=== PATIENT | female | born 1980 | race Caucasian/White ===

== ENCOUNTER 2021-02-07 07:42 | Observation (INO) ==
[~2021-02-07 07:42] MED LIST: CLINDAMYCIN 900 MG in DEXTROSE 5% 50 ML IV SCH
[2021-02-07] MEDS ORDERED: ONDANSETRON INJ 2 MG/ML 2 ML VIAL IV STA ×2 (08:01→12:08)
[2021-02-07] MEDS ORDERED: SODIUM CHLORIDE 0.9% 1000ML 1,000 ML IV STA (08:01)
[2021-02-07] MEDS ORDERED: MoRPHine SULFATE 4 MG/ML 1 ML CARP\\VIAL IV STA (08:01)
[2021-02-07 08:36] LABS: Basophils # (auto) 0.03 K/uL (0-0.2); Basophils % (auto) 0.2 %; Eosinophils # (auto) 0.62 K/uL (0-0.5); Eosinophils % (auto) 4.6 %; Hematocrit (blood only) 42.7 % (37-47); Hemoglobin 14.4 g/dL (12.0-16.0); Immature Granulocytes # (auto) 0.06 K/uL (0.00-0.02); Immature Granulocytes % (auto) 0.4 %; Lymphocytes # (auto) 3.18 K/uL (1.2-3.4); Lymphocytes % (auto) 23.7 %; Mean Corpuscular Hemoglobin 30.3 pg (25-34); Mean Corpuscular Hgb Conc 33.7 g/dL (32-36); Mean Corpuscular Volume 89.7 fL (80-100); Mean Platelet Volume 9.9 fL (7.4-10.4); Monocytes # (auto) 0.84 K/uL (0.11-0.59); Monocytes % (auto) 6.3 %; Neutrophils # (auto) 8.71 K/uL (1.4-6.5); Neutrophils % (auto) 64.8 %; Platelet Count 432 K/uL (130-400); RDW Coefficient of Variation 13.5 % (11.5-14.5); RDW Standard Deviation 44.2 fL (36.4-46.3); Red Blood Count 4.76 M/uL (4.2-5.4); White Blood Count 13.44 K/uL (4.8-10.8)
[2021-02-07 08:37] LABS: Appearance Urine Clear (Clear); Bilirubin Urine Negative (Negative); Blood Urine 1+ (Negative); Color Urine Yellow; Glucose Urine UA Negative (Negative); Ketones Urine Negative (Negative); Leukocyte Esterase Urine Negative (Negative); Nitrite Urine Negative (Negative); Protein Urine Negative (Negative); Specific Gravity Urine 1.015 (1.000-1.030); Urobilinogen Urine Negative (Negative)
[2021-02-07 08:55] LABS: Albumin Level 3.4 gm/dl (3.4-5.0); Bacteria Urine 1+ (Negative); Calcium 9.3 mg/dl (8.5-10.1); Calcium Oxalate Crystals Urine Present (None Prsent); Est GFR (Non-African American) 84.5 ml/min; Potassium 4.1 mmol/L (3.5-5.1); RBC Urine 0-4 /hpf (0-4)
[2021-02-07 08:58] LABS: Albumin Globulin Ratio 0.9 (0.9-2); Bilirubin,Total 0.3 mg/dl (0.2-1); Globulin 3.8 gm/dl (2.5-4.0); Total Protein 7.2 gm/dl (6.4-8.2)
[2021-02-07] MEDS ORDERED: HYDROmorphone INJ 0.5 MG/0.5 ML SYR IV STA ×3 (09:42→12:51)
[2021-02-07] MEDS ORDERED: OPTIRAY 350 500ml IV ONE (10:15)
--- NOTE | 2021-02-07 10:50 | CT Scan Report ---
ABDOMEN AND PELVIS CT WITH IV CONTRAST CT DOSE: 1827.89 mGy.cm HISTORY: Acute right lower quadrant abdominal pain with nausea and constipation RLQ abd pain TECHNIQUE: Multiaxial CT images of the abdomen and pelvis were performed following the IV administrat ion of 126 cc of Optiray, A dose lowering technique was utilized adhering to the principles of ALARA . COMPARISON STUDY: CT abdomen and pelvis 07/22/2020 FINDINGS: The imaged inferior cardiac chambers are unremarkable. Clear lung bases. There is no pneumatosis or p neumoperitoneum. Hepatomegaly with hepatic steatosis. Patency of the hepatic and portal veins. Unrema rkable spleen, pancreas and adrenal glands. The bladder wall hyperemia with equivocal wall thickening and mild pericholecystic edema. Layering debris within the gallbladder lumen. No biliary ductal dila tion. Nonobstructing calculi of the right kidney measure up to 8 mm within the inferior pole. Unremarkable left kidney. No hydronephrosis. Hysterectomy. Unremarkable urinary bladder. The aorta and IVC are unr emarkable. There is no adenopathy. No bowel obstruction or bowel wall thickening. Mild colonic diverticulosis. Normal appendix. Unremark able soft tissues. No acute fracture. IMPRESSION: 1. Mild hyperemia of the slightly thickened gallbladder wall with pericholecystic edema should be cor related with right upper quadrant abdominal ultrasound to exclude acute cholecystitis. 2. No bowel obstruction or bowel wall thickening. Normal appendix. 4. Hepatomegaly with hepatic steatosis. 5. Nonobstructing right nephrolithiasis. ACT 112: Negative or not required by law. The above report was generated using voice recognition software. It may contain grammatical, syntax o r spelling errors. Electronically signed by: Brice Whittington M.D. 02/07/2021 10:48 AM
--- NOTE | 2021-02-07 12:15 | Ultrasound Report ---
US gallbladder HISTORY: 40 years-old Female Eval GB acute right upper quadrant abdominal pain COMPARISON: CT abdomen and pelvis of same day TECHNIQUE: Multiple real-time sonographic images of the abdominal right upper quadrant were obtained assessing grayscale appearance, and color flow FINDINGS: Limited exam secondary to patient body habitus. Echogenic liver suggestive of hepatic steatosis. No hepatic mass. The pancreas is mostly obscured by bowel gas. Tumefactive sludge with shadowing cholelithiasis of the gallbladder neck. Mild gallbladder wall thickening, 4 mm. Trace pericholecystic fluid. Normal common bile duct, 6 mm. Adult Educator repor ts right upper quadrant abdominal tenderness during the study. Nonobstructing right nephrolithiasis redemonstrated. No hydronephrosis. IMPRESSION: 1. Cholelithiasis and gallbladder sludge with mild gallbladder wall thickening and pericholecystic fl uid is suspicious for acute cholecystitis. 2. No biliary ductal dilation. 3. Hepatic steatosis. 4. Right nephrolithiasis. ACT 112: Negative or not required by law. The above report was generated using voice recognition software. It may contain grammatical, syntax o r spelling errors. Electronically signed by: Brice Whittington M.D. 02/07/2021 12:14 PM
--- NOTE | 2021-02-07 12:54 | Electrocardiogram Report ---
Test Reason : Blood Pressure : / mmHG Vent. Rate : 072 BPM Atrial Rate : 072 BPM P-R Int : 146 ms QRS Dur : 084 ms QT Int : 398 ms P-R-T Axes : 053 025 035 degrees QTc Int : 435 ms Poor data quality, interpretation may be adversely affected Normal sinus rhythm Normal ECG When compared with ECG of 28-DEC-2020 19:31, No significant change was found Confirmed by Ji Curry ([id number]) on 02/07/2021 12:54:44 PM Referred By: REFERRED SELF Confirmed By:Mohit Curry
--- NOTE | 2021-02-07 13:23 | History & Physical Report ---
Date of Service February 07, 2021 Assessment & Plan (1) Cholecystitis: This is a 40y F with a PMH of anxiety/depression, pre-DM, asthma, JEWEL using CPAP who presented to the [facility] ED on 02/08/20 with complaints of abdominal pain and nausea starting this morning. CT a/p was performed that showed mild hyperemia of the slightly thickened gallbladder wall with pericholecystic edema. Follow up with a RUQ US showed cholelithiasis and gallbladder sludge with mild gallbladder wall thickening and pericholecystic fluid is suspicious for acute cholecystitis. No biliary ductal dilation. Labs show a WBC of 13 and LFTs are within normal limits. On exam patient is tender to palpation in the epigastric and RUQ regions. She says she feels mildly better with the administration of pain medication. Based on imaging, labs, exam and history we will proceed with taking patient to the OR for a laparoscopic cholecystectomy. Covid testing is pending. Please keep NPO. Pre-op abx will be ordered. Dr. Tran will be by to obtain consent. History of Present Illness Primary Care Provider: Montserrat Hernández DO This is a 40y F with a PMH of anxiety/depression, pre-DM, asthma, JEWEL using CPAP who presented to the [facility] ED on 02/08/20 with complaints of abdominal pain. Patient reports the pain woke her up at 4am this morning from her sleep. She describes the pain as sharp, rating it an 8-9/10 in severity, located in upper abdomen radiating off to the right side. She says she "felt like my stomach was going to burst." She also felt like she was constipated, but was able to pass 3 normal BM's this morning. She endorses + nausea without vomiting. Due to her pain she came to the ER for further evaluation. In the ER a CT a/p was performed that showed mild hyperemia of the slightly thickened gallbladder wall with pericholecystic edema. Follow up with a RUQ US showed cholelithiasis and gallbladder sludge with mild gallbladder wall thickening and pericholecystic fluid is suspicious for acute cholecystitis. No biliary ductal dilation. Patient says she never had an episode of pain similar to this before. She ate mac and cheese and a sandwich for dinner last evening. She denies having issues with eating fatty/greasy/spicy foods in the past. She denies fevers/chills, back pain, CP/SOB, or diarrhea. Her prior abdominal surgical history includes a hysterectomy. Allergies Allergy/AdvReac Type Severity Reaction Status Date / Time Penicillins Allergy Severe hives,difficulty Verified 02/07/21 08:39 breathing Home Medications Medication Instructions Recorded Confirmed Type albuterol sulfate 2 puff INHALATION Q4H PRN 04/01/19 02/07/21 History buspirone 15 mg PO TID 04/01/19 02/07/21 History escitalopram oxalate 5 mg PO QAM 04/01/19 02/07/21 History fenofibrate nanocrystallized 145 mg PO QAM 04/01/19 02/07/21 History fluticasone propionate 1 spray INTRANASAL BID 04/01/19 02/07/21 History hydroxyzine pamoate 25 mg PO TID PRN 04/01/19 02/07/21 History montelukast 10 mg PO QPM 04/01/19 02/07/21 History quetiapine 100 mg PO HS 04/01/19 02/07/21 History escitalopram oxalate 10 mg PO QAM 07/22/20 02/07/21 History fluticasone propion-salmeterol 1 inh INHALATION BID 07/22/20 02/07/21 History metformin 500 mg PO PM 07/22/20 02/07/21 History naproxen 500 mg PO BID PRN #20 tab 07/22/20 02/07/21 Rx losartan 12.5 mg PO QAM 10/19/20 02/07/21 History ondansetron HCl [Zofran] 4 mg PO Q6H PRN #20 tab 12/28/20 02/07/21 Rx Past Med/Surg History Medical History (Updated 02/07/21 @ 14:38 by Braden Madrigal DO) Anxiety Asthma Condyloma acuminata Depression Fatty liver History of ovarian cyst Hyperinsulinemia Hyperlipemia Obesity Prediabetes Recurrent sinus infections Urge and stress incontinence Surgical History H/O sinus surgery H/O tubal ligation H/O wisdom tooth extraction Hx of tonsillectomy S/P partial hysterectomy "Ovaries intact " Status post hysteroscopic ablation of endometrium Family History Father Depression Mother Depression Uncle Colorectal cancer maternal Denies family history of Ovarian cancer Breast cancer Social History Smoking Status: Current every day smoker Age Started Using Tobacco: 12; Cigarettes Per Day: 10; Hx Alcohol Use: No Hx Substance Use: No Preferred Language: Bulgarian marital status: Single Feels Safe at Home: Yes Seatbelt Use: always Review of Systems Constitutional: no fever and no chills Respiratory: no dyspnea Cardiovascular: no chest pain Gastrointestinal: + abdominal pain (mid abdomen and off to the right), + bloating, + nausea and + vomiting; no change in bowel habits Physical Exam Physical Exam: awake/alert Constitutional: well developed and + morbidly obese Respiratory: normal respiratory effort Gastrointestinal (Abdomen): Percussion/Palpation: + abdomen tender (ttp in epigastric and RUQ) and abdomen soft Results & Data Results & Data ([facility]) Vital Signs (Past 12 Hours) Vital Signs Temp Pulse Pulse Resp BP BP Pulse Ox 02/07/21 12:02 70 18 119/76 97 02/07/21 10:02 70 16 127/80 95 02/07/21 09:35 74 20 126/92 97 02/07/21 08:39 73 16 98 02/07/21 07:43 36.3 C L 90 18 161/120 H [address] WITH IV CONTRAST CT DOSE: 1827.89 mGy.cm HISTORY: Acute right lower quadrant abdominal pain with nausea and constipation RLQ abd pain TECHNIQUE: Multiaxial CT images of the abdomen and pelvis were performed following the IV administration of 126 cc of Optiray, A dose lowering technique was utilized adhering to the principles of ALARA. COMPARISON STUDY: CT abdomen and pelvis 07/22/2020 FINDINGS: The imaged inferior cardiac chambers are unremarkable. Clear lung bases. There is no pneumatosis or pneumoperitoneum. Hepatomegaly with hepatic steatosis. Patency of the hepatic and portal veins. Unremarkable spleen, pancreas and adrenal glands. The bladder wall hyperemia with equivocal wall thickening and mild pericholecystic edema. Layering debris within the gallbladder lumen. No biliary ductal dilation. Nonobstructing calculi of the right kidney measure up to 8 mm within the inferior pole. Unremarkable left kidney. No hydronephrosis. Hysterectomy. Unremarkable urinary bladder. The aorta and IVC are unremarkable. There is no adenopathy. No bowel obstruction or bowel wall thickening. Mild colonic diverticulosis. Normal appendix. Unremarkable soft tissues. No acute fracture. IMPRESSION: 1. Mild hyperemia of the slightly thickened gallbladder wall with pericholecystic edema should be correlated with right upper quadrant abdominal ultrasound to exclude acute cholecystitis. 2. No bowel obstruction or bowel wall thickening. Normal appendix. 4. Hepatomegaly with hepatic steatosis. 5. Nonobstructing right nephrolithiasis. ACT 112: Negative or not required by law. The above report was generated using voice recognition software. It may contain grammatical, syntax or spelling errors. Electronically signed by: Brice Whittington M.D. 02/07/2021 10:48 AM US gallbladder HISTORY: 40 years-old Female Eval GB acute right upper quadrant abdominal pain COMPARISON: CT abdomen and pelvis of same day TECHNIQUE: Multiple real-time sonographic images of the abdominal right upper quadrant were obtained assessing grayscale appearance, and color flow FINDINGS: Limited exam secondary to patient body habitus. Echogenic liver suggestive of hepatic steatosis. No hepatic mass. The pancreas is mostly obscured by bowel gas. Tumefactive sludge with shadowing cholelithiasis of the gallbladder neck. Mild gallbladder wall thickening, 4 mm. Trace pericholecystic fluid. Normal common bile duct, 6 mm. Cemetery Counselor reports right upper quadrant abdominal tenderness during the study. Nonobstructing right nephrolithiasis redemonstrated. No hydronephrosis. IMPRESSION: 1. Cholelithiasis and gallbladder sludge with mild gallbladder wall thickening and pericholecystic fluid is suspicious for acute cholecystitis. 2. No biliary ductal dilation. 3. Hepatic steatosis. 4. Right nephrolithiasis. ACT 112: Negative or not required by law. The above report was generated using voice recognition software. It may contain grammatical, syntax or spelling errors. Supervising Physician Co-Signing Physician Notes Patient seen and examined, labs and imaging reviewed, agree with above. 40-year-old female presented with right upper quadrant pain that started last night. CT showed possible cholecystitis, this was confirmed by right upper quadrant ultrasound which showed cholelithiasis and thickened gallbladder wall. On exam she is afebrile with stable vitals. She is tender to palpation in the right upper quadrant. She is morbidly obese. She has a slight leukocytosis of 14, normal LFTs otherwise unremarkable. I personally reviewed her CT scan and right quadrant ultrasound and agree with the interpretation of cholelithiasis with likely cholecystitis. Plan for laparoscopic cholecystectomy with possible cholangiogram The risk the procedure were discussed to include but not limited to bleeding, infection, retained stone, bile leak, damage to surrounding structures occluding common bile duct, conversion to open, need for future or more extensive surge ry, and the risk of anesthesia We will admit for postop observation The diagnosis, details of the procedure and recovery, and plan of care were discussed with the patient, all questions were answered, the patient expressed understanding agrees the plan of care as stated PG Care Time/CCT Total # of Minutes Spent Total Time Spent with Patient: Total time spent is greater than 50% in coordination of care (as documented) at patient's floor/unit and/or counseling patient: Coding Level of Care Code 17124 Initial Inpt Care Lvl 2 Diagnoses Cholecystitis K81.9
[2021-02-07] MEDS ORDERED: fentaNYL citrate 100 MCG/2 ML VIAL ONE (14:38)
--- NOTE | 2021-02-07 14:38 | Anesthesiology Consultation ---
Date of Service February 07, 2021 Assessment & Plan (1) Encounter for pre-operative examination: Chart Review Chart Review: Acceptable Risk for Surgery Consults Requested none ASA ASA3 Proposed Anesthesia Anesthesia Type: General Risk / Benefits Reviewed With: PT / POA / Parent / Guardian, Accepts Plan and Informed Consent Obtained History Surgery Operation Date: 02/07/21 14:05 Proposed Procedures p Laparoscopic Cholecystectomy, Possible Cholangiogram - Bryan Tran, DO, FACS Height/Weight Height: 5 ft 5 in Weight: 140.4 kg Allergies Allergy/AdvReac Type Severity Reaction Status Date / Time Penicillins Allergy Severe hives,difficulty Verified 02/07/21 08:39 breathing Medications Home Medications Medication Instructions Recorded Confirmed Last Taken albuterol sulfate 2 puff INHALATION Q4H PRN 04/01/19 02/07/21 03/31/19 buspirone 15 mg PO TID 04/01/19 02/07/21 02/07/21 escitalopram oxalate 5 mg PO QAM 04/01/19 02/07/21 02/07/21 fenofibrate nanocrystallized 145 mg PO QAM 04/01/19 02/07/21 02/07/21 fluticasone propionate 1 spray INTRANASAL BID 04/01/19 02/07/21 02/06/21 hydroxyzine pamoate 25 mg PO TID PRN 04/01/19 02/07/21 02/07/21 montelukast 10 mg PO QPM 04/01/19 02/07/21 02/06/21 quetiapine 100 mg PO HS 04/01/19 02/07/21 02/06/21 escitalopram oxalate 10 mg PO QAM 07/22/20 02/07/21 02/07/21 fluticasone propion-salmeterol 1 inh INHALATION BID 07/22/20 02/07/21 02/06/21 metformin 500 mg PO PM 07/22/20 02/07/21 02/06/21 naproxen 500 mg PO BID PRN #20 tab 07/22/20 02/07/21 07/28/20 losartan 12.5 mg PO QAM 10/19/20 02/07/21 02/07/21 ondansetron HCl [Zofran] 4 mg PO Q6H PRN #20 tab 12/28/20 02/07/21 02/07/21 NPO Date Last Intake of Fluids: 02/07/21 Time Last Intake of Fluids: 06:00 Date Last Intake of Solids: 02/06/21 Past Medical History Medical History (Updated 02/07/21 @ 14:38 by Braden Madrigal DO) Anxiety Asthma Condyloma acuminata Depression Fatty liver History of ovarian cyst Hyperinsulinemia Hyperlipemia Obesity Prediabetes Recurrent sinus infections Urge and stress incontinence Exercise / Class Metabolic Activity II 4-5 Yardwork/Stairs/Walk up hill Past Family History Family History Father Depression Mother Depression Uncle Colorectal cancer maternal Denies family history of Ovarian cancer Breast cancer Past Surgical History Surgical History H/O sinus surgery H/O tubal ligation H/O wisdom tooth extraction Hx of tonsillectomy S/P partial hysterectomy "Ovaries intact " Status post hysteroscopic ablation of endometrium Past Anesthesia History No Hx of Anesthesia Complications and No Family Hx of Anesthesia Complications History of PONV No Hx of PONV and No Hx of Motion Sickness Social History Smoking Status: Current every day smoker tobacco type: cigarettes Smoking cigarettes per day: 10 Hx Alcohol Use: No Hx Substance Use: No Physical Exam Vital Signs Last Vital Signs Temp 97.3 F L 02/07/21 07:43 Pulse 70 02/07/21 12:02 Resp 18 02/07/21 12:02 BP 119/76 02/07/21 12:02 Pulse Ox 97 02/07/21 12:02 ENMT Mouth: no dentition abnormality Thyromental Distance: > or= 3.5 Finger Breadths Mallampati Class: III Neck normal visual inspection Respiratory normal respiratory effort Auscultation: lungs clear to auscultation bilaterally Cardiovascular Rate/Rhythm: regular rate and regular rhythm Testing Laboratory Results 02/07/21 08:25 02/07/21 08:25 Urine Color Yellow 02/07/21 08:25 Urine Appearance Clear (Clear) 02/07/21 08:25 Urine pH 7.0 (4.5-7.5) 02/07/21 08:25 Ur Specific [place] 1.015 (1.000-1.030) 02/07/21 08:25 Urine Protein Negative (Negative) 02/07/21 08:25 Urine Glucose (UA) Negative (Negative) 02/07/21 08:25 Urine Ketones Negative (Negative) 02/07/21 08:25 Urine Nitrite Negative (Negative) 02/07/21 08:25 Ur Leukocyte Esterase Negative (Negative) 02/07/21 08:25 Urine RBC 0-4 /hpf (0-4) 02/07/21 08:25 Urine WBC 5-10 /hpf (0-5) H 02/07/21 08:25 Ur Epithelial Cells 5-10 /lpf (0-5) H 02/07/21 08:25 Electrocardiogram Date: 02/07/21 Normal sinus rhythm, rate 72 bpm Normal ECG When compared with ECG of 28-DEC-2020 19:31, No significant change was found Confirmed by Ji Curry ([id number]) on 02/07/2021 12:54:44 PM Chest X-Ray Date: 12/28/20
[2021-02-07] MEDS ORDERED: ATROPINE SULFATE 0.1 MG/ML 10ML SYR IV PRN (14:39)
[2021-02-07] MEDS ORDERED: ePHEDrine sulfate 50 MG/ML AMP IV PRN (14:39)
[2021-02-07] MEDS ORDERED: ONDANSETRON INJ 2 MG/ML 2 ML VIAL IV PRN (14:39)
[2021-02-07] MEDS ORDERED: BUPIVACAINE 0.5 % 5 MG/1 ML MPF 30ML VIAL ONE (14:50)
[2021-02-07 15:12] LABS: Pregnancy Test, Serum Negative (Negative)
[2021-02-07] MEDS ORDERED: CLINDAMYCIN PHOS 900 MG/6 ML VIAL IV ONE (15:35)
--- NOTE | 2021-02-07 16:04 | Operative Report ---
PG Post Operative Report Pre & Post Diagnosis Operation Date: 02/07/21 14:05 Pre-Op Diagnosis: Cholecystitis Post-Op Diagnosis: Cholecystitis I identified the patient and participated in the time-out.: Yes Procedure Operation Date: 02/07/21 14:05 Actual Procedures p Laparoscopic Cholecystectomy - Bryan Tran DO, FACS Surgeon Bryan Tran DO, FACS Pre Planning Advisor Luis Carlos Lama Estimated Blood Loss 5 Findings Consistent with Post-Op Diagnosis Moderate cholecystitis. Critical view of safety obtained, cystic duct and artery doubly clipped and divided. Good hemostasis. Specimens Gallbladder Anesthesia Type General Complications none Disposition Accompanied Patient To Recovery: No Disposition: Recovery Room Indications 40-year-old female presented to the emergency department with 24 hours of right upper quadrant abdominal pain. Work-up revealed acute calculus cholecystitis. Plan for laparoscopic cholecystectomy with possible cholangiogram. The risks of the procedure were discussed, all questions were answered, and the patient agreed to proceed with surgery as planned. Description of Procedure The patient was properly identified, consented, and taken to the operating room where she was placed in the supine position. General endotracheal anesthesia was induced. SCDs and a safety belt were placed. Preoperative antibiotics were administered. The patient's abdomen was prepped and draped in the standard sterile fashion. A surgical timeout was performed and all parties were in agreement that this was the correct patient and procedure to be performed and we continued as planned. An incision was made superior and to the left of the umbilicus overlying the rectus muscle and the Veress needle was inserted. Saline drop test confirmed entry into the peritoneum. The abdomen was insufflated with carbon dioxide which the patient tolerated without incident. The abdomen was then entered using the Optiview technique and a 5 mm trocar. The laparoscope was inserted and no damage from initial trocar or Veress needle placement was noted, no gross abnormalities were noted within the 4 quadrants of the abdomen. An 11 mm port was placed in the subxiphoid position and two 5 mm ports were then placed in the right subcostal position. The patient was placed in reverse Trendelenburg position and rotated towards the left. Gallbladder was moderately inflamed. The dome of the gallbladder was retracted towards the left upper quadrant and the infundibulum was retracted toward the right lower quadrant revealing Calot's triangle. Peritoneal attachments were taken down with electrocautery and blunt dissection. The cystic duct and artery were circumferentially dissected. A window of safety was obtained showing the cystic duct entering the gallbladder with no aberrant structures noted. The cystic duct and artery were doubly clipped and divided. The gallbladder was then lifted off the gallbladder fossa with electrocautery. The gallbladder was placed in an Endo Catch bag and removed through the subxiphoid port site. The right upper quadrant was irrigated and hemostasis was found to be good. 5 mm trochars were removed under direct visualization and the abdomen was allowed to collapse. The subxiphoid port site fascia was closed with 0 Vicryl suture utilizing the Yves-Lesa device prior to the port removal. The wound was irrigated, and the skin of all ports was closed with 4-0 Monocryl subcuticular sutures. Dermabond was placed over the wounds. The patient was extubated in the operating room and taken to the PACU where she recovered without apparent incident. All sponge, instrument and needle counts were correct at the conclusion of the procedure. The patient tolerated the procedure well. The physician's assistant merchandiser was present and scrubbed for the entirety of the case and was essential in positioning the patient, prepping and draping, retraction and exposure, driving the laparoscope, removal of the gallbladder, closure the incisions, and placement of the dressings. I attest to the content of the Intraoperative Record and any orders documented therein. Any exceptions are noted below.
[2021-02-07] MEDS: fentaNYL citrate 100 MCG/2 ML VIAL IV PRN ×4 (16:31→17:03)
[2021-02-07] MEDS ORDERED: PROMETHAZINE HCL 25 MG in SODIUM CHLORIDE 0.9% 50 ML IV ONE (16:45)
--- NOTE | 2021-02-07 17:10 | Emergency Department Note ---
History of Present Illness General Chief complaint: Abdominal Pain Stated complaint: RT SIDED ABD PAIN INTO [place]LE [place] Time Seen by Provider: 02/07/21 07:54 History of Present Illness Maximum Pain Intensity: 6 40-year-old female who presents to the emergency department with complaint of epigastric/central abdominal pain that is not radiating into the lower abdominal region. The patient reports that the pain started earlier this morning, and has progressively worsened. The patient reports that it feels like she is constipated, but did have several bowel movements this morning. She denies any pain radiating into the back, shoulder or neck. She does report nausea without vomiting, and currently rates her discomfort an 8 out of 10. She denies any alleviating or aggravating factors for her pain. The patient denies history of GI disease, acid reflux, gallbladder disease, hepatitis, pancreatitis or cardiopulmonary disease. Home Medications Medication Instructions Recorded Confirmed Type albuterol sulfate 2 puff INHALATION Q4H PRN 04/01/19 02/07/21 History buspirone 15 mg PO TID 04/01/19 02/07/21 History escitalopram oxalate 5 mg PO QAM 04/01/19 02/07/21 History fenofibrate nanocrystallized 145 mg PO QAM 04/01/19 02/07/21 History fluticasone propionate 1 spray INTRANASAL BID 04/01/19 02/07/21 History hydroxyzine pamoate 25 mg PO TID PRN 04/01/19 02/07/21 History montelukast 10 mg PO QPM 04/01/19 02/07/21 History quetiapine 100 mg PO HS 04/01/19 02/07/21 History escitalopram oxalate 10 mg PO QAM 07/22/20 02/07/21 History fluticasone propion-salmeterol 1 inh INHALATION BID 07/22/20 02/07/21 History metformin 500 mg PO PM 07/22/20 02/07/21 History naproxen 500 mg PO BID PRN #20 tab 07/22/20 02/07/21 Rx losartan 12.5 mg PO QAM 10/19/20 02/07/21 History ondansetron HCl [Zofran] 4 mg PO Q6H PRN #20 tab 12/28/20 02/07/21 Rx Allergies Allergy/AdvReac Type Severity Reaction Status Date / Time Penicillins Allergy Severe hives,difficulty Verified 02/07/21 08:39 breathing Past Med/Surg History Medical History (Updated 02/07/21 @ 17:10 by Sebastian Whiting) Anxiety Asthma Condyloma acuminata Depression Fatty liver History of ovarian cyst Hyperinsulinemia Hyperlipemia Obesity Prediabetes Recurrent sinus infections Urge and stress incontinence Surgical History H/O sinus surgery H/O tubal ligation H/O wisdom tooth extraction Hx of tonsillectomy S/P partial hysterectomy "Ovaries intact " Status post hysteroscopic ablation of endometrium Family History Father Depression Mother Depression Uncle Colorectal cancer maternal Denies family history of Ovarian cancer Breast cancer Social History Smoking Status: Current every day smoker Age Started Using Tobacco: 12; Cigarettes Per Day: 10; Hx Alcohol Use: No Hx Substance Use: No Preferred Language: Portuguese marital status: Single Feels Safe at Home: Yes Seatbelt Use: always Review of Systems 10 system review was performed and was negative except for pertinent positives and negatives as indicated in history of present illness Physical Exam Vital Signs Vital Signs - 24 hr 02/07/21 07:43 02/07/21 08:39 02/07/21 09:35 Temperature 36.3 C L Temperature Source Temporal Artery Scan Pulse Rate 90 73 Pulse Rate [Apical] Pulse Rate [Right Finger] 74 Pulse Rhythm Regular Pulse Rhythm [Apical] Pulse Rhythm [Right Finger] Pulse Strength [Apical] Pulse Strength [Right Finger] Respiratory Rate 18 16 20 Respiratory Effort / Characteristics Non-Labored Respiratory Depth Normal Respiratory Pattern Blood Pressure 161/120 H Blood Pressure [Left Arm] 126/92 Blood Pressure Mean 133 Blood Pressure Mean [Left Arm] 103 Blood Pressure Position [Left Arm] Pulse Oximetry 98 98 97 Oxygen Delivery Method Room Air Room Air Room Air Oxygen Flow Rate Sepsis Recent Fever Within 48 Hours No Sepsis New/Unexplained Change in Mental Status N/A Sepsis Action Taken by Nursing No Action Required 02/07/21 10:02 02/07/21 12:02 02/07/21 14:36 Temperature 37.1 C Temperature Source Oral Pulse Rate Pulse Rate [Apical] Pulse Rate [Right Finger] 70 70 75 Pulse Rhythm Pulse Rhythm [Apical] Pulse Rhythm [Right Finger] Regular Regular Pulse Strength [Apical] Pulse Strength [Right Finger] Normal Normal Respiratory Rate 16 18 16 Respiratory Effort / Characteristics Non-Labored Non-Labored Non-Labored Spontaneous Respiratory Depth Normal Normal Normal Respiratory Pattern Regular Regular Regular Blood Pressure Blood Pressure [Left Arm] 127/80 119/76 135/81 Blood Pressure Mean Blood Pressure Mean [Left Arm] 95 90 99 Blood Pressure Position [Left Arm] Lying Semi-fowlers Pulse Oximetry 95 97 97 Oxygen Delivery Method Room Air Room Air Room Air Oxygen Flow Rate Sepsis Recent Fever Within 48 Hours Sepsis New/Unexplained Change in Mental Status Sepsis Action Taken by Nursing 02/07/21 16:15 02/07/21 16:20 02/07/21 16:30 Temperature 37.0 C Temperature Source Temporal Artery Scan Pulse Rate Pulse Rate [Apical] 79 76 79 Pulse Rate [Right Finger] Pulse Rhythm Pulse Rhythm [Apical] Regular Regular Regular Pulse Rhythm [Right Finger] Pulse Strength [Apical] Normal Normal Normal Pulse Strength [Right Finger] Respiratory Rate 20 20 18 Respiratory Effort / Characteristics Non-Labored Spontaneous Non-Labored Spontaneous Non-Labored Spontaneous Respiratory Depth Normal Normal Normal Respiratory Pattern Regular Regular Regular Blood Pressure Blood Pressure [Left Arm] 143/97 H 137/95 133/96 Blood Pressure Mean Blood Pressure Mean [Left Arm] 112 109 108 Blood Pressure Position [Left Arm] Semi-fowlers Semi-fowlers Semi-fowlers Pulse Oximetry 93 99 95 Oxygen Delivery Method Oxymask Oxymask Oxymask Oxygen Flow Rate 6 6 6 Sepsis Recent Fever Within 48 Hours Sepsis New/Unexplained Change in Mental Status Sepsis Action Taken by Nursing 02/07/21 16:40 02/07/21 16:50 Temperature Temperature Source Pulse Rate Pulse Rate [Apical] 80 95 H Pulse Rate [Right Finger] Pulse Rhythm Pulse Rhythm [Apical] Regular Regular Pulse Rhythm [Right Finger] Pulse Strength [Apical] Normal Normal Pulse Strength [Right Finger] Respiratory Rate 16 18 Respiratory Effort / Characteristics Non-Labored Spontaneous Non-Labored Spontaneous Respiratory Depth Normal Normal Respiratory Pattern Regular Regular Blood Pressure Blood Pressure [Left Arm] 142/95 H 143/92 H Blood Pressure Mean Blood Pressure Mean [Left Arm] 110 109 Blood Pressure Position [Left Arm] Semi-fowlers Semi-fowlers Pulse Oximetry 96 95 Oxygen Delivery Method Oxymask Oxymask Oxygen Flow Rate 4 4 Sepsis Recent Fever Within 48 Hours Sepsis New/Unexplained Change in Mental Status Sepsis Action Taken by Nursing CONSTITUTIONAL: Obese female in moderately severe discomfort. HEENT: Normocephalic, atraumatic. No scleral icterus or conjunctival injection/pallor. NECK: Full active range of motion without discomfort. No obvious JVDs or carotid bruits. No nuchal rigidity. LYMPHATICS: No cervical chain adenopathy. RESPIRATORY: Clear to auscultation bilaterally with no wheezing, crackles, rhonchi or stridor. CARDIOVASCULAR: Regular rate and rhythm with no murmurs, rubs or gallops. GASTROINTESTINAL: Bowel sounds present in all quadrants. Examination shows generalized central and right-sided abdominal tenderness to palpation. Negative Rovsing sign. Negative psoas/obturator sign. No focal McBurney's point tenderness. No CVA tenderness. No rigidity, guarding or rebound. MUSCULOSKELETAL: Full range of motion of all joints without discomfort. INTEGUMENTARY: No rash or other significant dermatologic conditions noted. HEMATOLOGIC: No ecchymosis or petechiae. PSYCHIATRIC: Positive affect. NEUROLOGIC: No focal neurologic deficits noted. Course Course Patient history and physical exam were performed. Nurses notes were reviewed. Vital signs were reviewed, showing an elevated blood pressure 161/120. IV access was established, and labs were drawn. The patient was additionally administered IV morphine and Zofran, along with a liter of normal saline. Review of labs shows a white count of 13.44 with left shift and bandemia. CMP was grossly normal with normal LFTs, total bilirubin and alkaline phosphatase. Lipase was also normal. Serum was negative, and urinalysis shows 1+ hematuria without evidence for infection. Prior to going to CT, the patient did request something additional for pain, and was administered IV Dilaudid 0.5 mg. After returning from CT, she requested something again as the pain was getting worse, along with nausea. She administered additional IV Dilaudid and Zofran. CT with IV contrast of the abdomen and pelvis was concerning for possible acute cholecystitis. There was no additional acute findings on CT imaging. At this point, I recommended gallbladder ultrasound, which was performed and was concerning for acute cholecystitis. Findings were discussed with Dr. Lawson, ED attending physician, as well as Dr. Tran (Raul Lama PA-C) with general surgery. As there were several patients awaiting surgery, the patient was administered IV Mefoxin. COVID-19 testing was also ordered and was negative. Administered Medications Fentanyl Citrate (Fentanyl Citrate 100 Mcg/2 Ml Vial) 50 mcg IV Q5M PRN PRN Reason: PACU Use Only-Pain Stop: 02/07/21 22:39 Last Admin: 02/07/21 16:55 Dose: 50 mcg Documented by: [id number] Admin: 02/07/21 16:40 Dose: 50 mcg Documented by: [id number] Admin: 02/07/21 16:31 Dose: 50 mcg Documented by: [id number] Ondansetron HCl (Ondansetron Inj 2 Mg/Ml 2 Ml Vial) 4 mg IV ONCE PRN PRN Reason: PACU Use Only-Nausea/Vomiting Stop: 02/07/21 22:39 Last Admin: 02/07/21 16:25 Dose: 4 mg Documented by: [id number] Discontinued Medications Bupivacaine HCl (Bupivacaine 0.5 % 5 Mg/1 Ml Mpf 30ml Vial) Confirm Administered Dose 30 ml .ROUTE .STK-MED ONE Stop: 02/07/21 14:51 Last Admin: 02/07/21 16:00 Dose: 30 ml Documented by: [id number] Clindamycin Phosphate (Clindamycin Phos 900 Mg/6 Ml Vial) 900 mg IV ONCE ONE Stop: 02/07/21 15:36 Last Admin: 02/07/21 15:05 Dose: 900 mg Documented by: [id number] Hydromorphone HCl (Hydromorphone Inj 0.5 Mg/0.5 Ml Syr) 0.5 mg IV NOW STA Stop: 02/07/21 09:43 Last Admin: 02/07/21 09:57 Dose: 0.5 mg Documented by: [id number] Hydromorphone HCl (Hydromorphone Inj 0.5 Mg/0.5 Ml Syr) 0.5 mg IV NOW STA Stop: 02/07/21 12:09 Last Admin: 02/07/21 12:45 Dose: 0.5 mg Documented by: [id number] Sodium Chloride (Nss 1000ml) 1,000 mls @ 999 mls/hr IV .Q1H1M STA Stop: 02/07/21 09:01 Last Infusion: 02/07/21 09:38 Dose: 0 mls/hr Documented by: [id number] Admin: 02/07/21 08:33 Dose: 999 mls/hr Documented by: [id number] Promethazine HCl 25 mg/ Sodium (Chloride) 51 mls @ 204 mls/hr IV NOW ONE Stop: 02/07/21 16:59 Last Admin: 02/07/21 16:46 Dose: 204 mls/hr Documented by: [id number] Ioversol (Optiray 350 500ml) 126 ml IV ONCE ONE Stop: 02/07/21 10:16 Last Admin: 02/07/21 10:16 Dose: 126 ml Documented by: [id number] Morphine Sulfate (Morphine Sulfate 4 Mg/Ml 1 Ml Carp\\Vial) 4 mg IV NOW STA Stop: 02/07/21 08:02 Last Admin: 02/07/21 08:34 Dose: 4 mg Documented by: [id number] Ondansetron HCl (Ondansetron Inj 2 Mg/Ml 2 Ml Vial) 4 mg IV NOW STA Stop: 02/07/21 08:02 Last Admin: 02/07/21 08:34 Dose: 4 mg Documented by: [id number] Ondansetron HCl (Ondansetron Inj 2 Mg/Ml 2 Ml Vial) 4 mg IV NOW STA Stop: 02/07/21 12:09 Last Admin: 02/07/21 12:45 Dose: 4 mg Documented by: [id number] Medical Decision Making Medical Records Attestation: I reviewed the patient's medical records. Home Medications Current Medication List: was personally reviewed by me Laboratory Data Attestation: I reviewed the patient's lab results. Result diagrams: 02/07/21 08:25 02/07/21 08:25 Lab Results 02/07/21 02/07/21 02/07/21 Range/Units 08:25 08:25 08:25 WBC 13.44 H (4.8-10.8) K/uL RBC 4.76 (4.2-5.4) M/uL Hgb 14.4 (12.0-16.0) g/dL Hct 42.7 (37-47) % MCV 89.7 (80-100) fL MCH 30.3 (25-34) pg MCHC 33.7 (32-36) g/dL RDW Std Deviation 44.2 (36.4-46.3) fL RDW Coeff of Tiffanie 13.5 (11.5-14.5) % Plt Count 432 H (130-400) K/uL MPV 9.9 (7.4-10.4) fL Immature Gran % (Auto) 0.4 % Neut % (Auto) 64.8 % Lymph % (Auto) 23.7 % Ford % (Auto) 6.3 % Eos % (Auto) 4.6 % Baso % (Auto) 0.2 % Neut # (Auto) 8.71 H (1.4-6.5) K/uL Lymph # (Auto) 3.18 (1.2-3.4) K/uL Ford # (Auto) 0.84 H (0.11-0.59) K/uL Eos # (Auto) 0.62 H (0-0.5) K/uL Baso # (Auto) 0.03 (0-0.2) K/uL Immature Gran # (Auto) 0.06 H (0.00-0.02) K/uL Sodium 141 (136-145) mmol/L Potassium 4.1 (3.5-5.1) mmol/L Chloride 108 H (98-107) mmol/L Carbon Dioxide 28 (21-32) mmol/L Anion Gap 5.0 (3-11) BUN 10 (7-18) mg/dl Creatinine 0.85 (0.6-1.2) mg/dl Est Cr Clr Drug Dosing 123.0 ml/min Est GFR ( Amer) 98.0 ml/min Est GFR (Non-Af Amer) 84.5 ml/min BUN/Creatinine Ratio 12.0 (10-20) Glucose 108 H (70-99) mg/dl POC Glucose (70-99) mg/dl Calcium 9.3 (8.5-10.1) mg/dl Total Bilirubin 0.3 (0.2-1) mg/dl AST 27 (15-37) U/L ALT 48 (12-78) U/L Alkaline Phosphatase 85 (45-117) U/L Total Protein 7.2 (6.4-8.2) gm/dl Albumin 3.4 (3.4-5.0) gm/dl Globulin 3.8 (2.5-4.0) gm/dl Albumin/Globulin Ratio 0.9 (0.9-2) Lipase 117 (73-393) U/L HCG, Qual (Negative) Urine Color Yellow Urine Appearance Clear (Clear) Urine pH 7.0 (4.5-7.5) Ur Specific [place] 1.015 (1.000-1.030) Urine Protein Negative (Negative) Urine Glucose (UA) Negative (Negative) Urine Ketones Negative (Negative) Urine Blood 1+ H (Negative) Urine Nitrite Negative (Negative) Urine Bilirubin Negative (Negative) Urine Urobilinogen Negative (Negative) Ur Leukocyte Esterase Negative (Negative) Urine RBC 0-4 (0-4) /hpf Urine WBC 5-10 H (0-5) /hpf Ur Epithelial Cells 5-10 H (0-5) /lpf Calcium Oxalate Crystal Present A (None Prsent) Urine Bacteria 1+ H (Negative) COVID-19 Eval Order SARS-CoV-2 (PCR) (Negative) 02/07/21 02/07/21 02/07/21 Range/Units 12:44 12:44 14:24 WBC (4.8-10.8) K/uL RBC (4.2-5.4) M/uL Hgb (12.0-16.0) g/dL Hct (37-47) % MCV (80-100) fL MCH (25-34) pg MCHC (32-36) g/dL RDW Std Deviation (36.4-46.3) fL RDW Coeff of Tiffanie (11.5-14.5) % Plt Count (130-400) K/uL MPV (7.4-10.4) fL Immature Gran % (Auto) % Neut % (Auto) % Lymph % (Auto) % Ford % (Auto) % Eos % (Auto) % Baso % (Auto) % Neut # (Auto) (1.4-6.5) K/uL Lymph # (Auto) (1.2-3.4) K/uL Ford # (Auto) (0.11-0.59) K/uL Eos # (Auto) (0-0.5) K/uL Baso # (Auto) (0-0.2) K/uL Immature Gran # (Auto) (0.00-0.02) K/uL Sodium (136-145) mmol/L Potassium (3.5-5.1) mmol/L Chloride (98-107) mmol/L Carbon Dioxide (21-32) mmol/L Anion Gap (3-11) BUN (7-18) mg/dl Creatinine (0.6-1.2) mg/dl Est Cr Clr Drug Dosing ml/min Est GFR ( Amer) ml/min Est GFR (Non-Af Amer) ml/min BUN/Creatinine Ratio (10-20) Glucose (70-99) mg/dl POC Glucose (70-99) mg/dl Calcium (8.5-10.1) mg/dl Total Bilirubin (0.2-1) mg/dl AST (15-37) U/L ALT (12-78) U/L Alkaline Phosphatase (45-117) U/L Total Protein (6.4-8.2) gm/dl Albumin (3.4-5.0) gm/dl Globulin (2.5-4.0) gm/dl Albumin/Globulin Ratio (0.9-2) Lipase (73-393) U/L HCG, Qual Negative (Negative) Urine Color Urine Appearance (Clear) Urine pH (4.5-7.5) Ur Specific [place] (1.000-1.030) Urine Protein (Negative) Urine Glucose (UA) (Negative) Urine Ketones (Negative) Urine Blood (Negative) Urine Nitrite (Negative) Urine Bilirubin (Negative) Urine Urobilinogen (Negative) Ur Leukocyte Esterase (Negative) Urine RBC (0-4) /hpf Urine WBC (0-5) /hpf Ur Epithelial Cells (0-5) /lpf Calcium Oxalate Crystal (None Prsent) Urine Bacteria (Negative) COVID-19 Eval [address] Covid19 at [facility] SARS-CoV-2 (PCR) NEGATIVE (Negative) 02/07/21 Range/Units 14:35 WBC (4.8-10.8) K/uL RBC (4.2-5.4) M/uL Hgb (12.0-16.0) g/dL Hct (37-47) % MCV (80-100) fL MCH (25-34) pg MCHC (32-36) g/dL RDW Std Deviation (36.4-46.3) fL RDW Coeff of Tiffanie (11.5-14.5) % Plt Count (130-400) K/uL MPV (7.4-10.4) fL Immature Gran % (Auto) % Neut % (Auto) % Lymph % (Auto) % Ford % (Auto) % Eos % (Auto) % Baso % (Auto) % Neut # (Auto) (1.4-6.5) K/uL Lymph # (Auto) (1.2-3.4) K/uL Ford # (Auto) (0.11-0.59) K/uL Eos # (Auto) (0-0.5) K/uL Baso # (Auto) (0-0.2) K/uL Immature Gran # (Auto) (0.00-0.02) K/uL Sodium (136-145) mmol/L Potassium (3.5-5.1) mmol/L Chloride (98-107) mmol/L Carbon Dioxide (21-32) mmol/L Anion Gap (3-11) BUN (7-18) mg/dl Creatinine (0.6-1.2) mg/dl Est Cr Clr Drug Dosing ml/min Est GFR ( Amer) ml/min Est GFR (Non-Af Amer) ml/min BUN/Creatinine Ratio (10-20) Glucose (70-99) mg/dl POC Glucose 92 (70-99) mg/dl Calcium (8.5-10.1) mg/dl Total Bilirubin (0.2-1) mg/dl AST (15-37) U/L ALT (12-78) U/L Alkaline Phosphatase (45-117) U/L Total Protein (6.4-8.2) gm/dl Albumin (3.4-5.0) gm/dl Globulin (2.5-4.0) gm/dl Albumin/Globulin Ratio (0.9-2) Lipase (73-393) U/L HCG, Qual (Negative) Urine Color Urine Appearance (Clear) Urine pH (4.5-7.5) Ur Specific [place] (1.000-1.030) Urine Protein (Negative) Urine Glucose (UA) (Negative) Urine Ketones (Negative) Urine Blood (Negative) Urine Nitrite (Negative) Urine Bilirubin (Negative) Urine Urobilinogen (Negative) Ur Leukocyte Esterase (Negative) Urine RBC (0-4) /hpf Urine WBC (0-5) /hpf Ur Epithelial Cells (0-5) /lpf Calcium Oxalate Crystal (None Prsent) Urine Bacteria (Negative) COVID-19 Eval Order SARS-CoV-2 (PCR) (Negative) Imaging Data Attestation: I personally reviewed and interpreted this imaging study as follows : My Impression: My interpretation of a CT with IV contrast of the abdomen and pelvis is concerning for possible cholecystitis with pericholecystic edema and thickened gallbladder wall. No other acute findings such as bowel obstruction, diverticulitis or appendicitis was appreciated. Gallbladder ultrasound was performed and was consistent with acute cholecysti tis. Gallbladder sludge and cholelithiasis within the gallbladder neck is also noted. Radiologist reports were also reviewed. Radiologist's Impression: Abdomen/Pelvis CT 02/07/21 08:[address] WITH IV CONTRAST CT DOSE: 1827.89 mGy.cm HISTORY: Acute right lower quadrant abdominal pain with nausea and constipation RLQ abd pain TECHNIQUE: Multiaxial CT images of the abdomen and pelvis were performed f ollowing the IV administration of 126 cc of Optiray, A dose lowering technique was utilized adhering to the principles of ALARA. COMPARISON STUDY: CT abdomen and pelvis 07/22/2020 FINDINGS: The imaged inferior cardiac chambers are unremarkable. Clear lung bases. There is no pneumatosis or pneumoperitoneum. Hepatomegaly with hepatic steatosis. Patency of the hepatic and portal veins. Unremarkable spleen, pancreas and adrenal glands. The bladder wall hyperemia with equivocal wall thickening and mild pericholecystic edema. Layering debris within the gallbladder lumen. No biliary ductal dilation. Nonobstructing calculi of the right kidney measure up to 8 mm within the inferior pole. Unremarkable left kidney. No hydronephrosis. Hysterectomy. Unremarkable urinary bladder. The aorta and IVC are unremarkable. There is no adenopathy. No bowel obstruction or bowel wall thickening. Mild colonic diverticulosis. Normal appendix. Unremarkable soft tissues. No acute fracture. IMPRESSION: 1. Mild hyperemia of the slightly thickened gallbladder wall with pericholecystic edema should be correlated with right upper quadrant abdominal ultrasound to exclude acute cholecystitis. 2. No bowel obstruction or bowel wall thickening. Normal appendix. 4. Hepatomegaly with hepatic steatosis. 5. Nonobstructing right nephrolithiasis. ACT 112: Negative or not required by law. The above report was generated using voice recognition software. It may contain grammatical, syntax or spelling errors. Electronically signed by: Brice Whittington M.D. 02/07/2021 10:48 AM Gallbladder Ultrasound 02/07/21 11:07 US gallbladder HISTORY: 40 years-old Female Eval GB acute right upper quadrant abdominal pain COMPARISON: CT abdomen and pelvis of same day TECHNIQUE: Multiple real-time sonographic images of the abdominal right upper quadrant were obtained assessing grayscale appearance, and color flow FINDINGS: Limited exam secondary to patient body habitus. Echogenic liver suggestive of hepatic steatosis. No hepatic mass. The pancreas is mostly obscured by bowel gas. Tumefactive sludge with shadowing cholelithiasis of the gallbladder neck. Mild gallbladder wall thickening, 4 mm. Trace pericholecystic fluid. Normal common bile duct, 6 mm. Bin Worker reports right upper quadrant abdominal tenderness during the study. Nonobstructing right nephrolithiasis redemonstrated. No hydronephrosis. IMPRESSION: 1. Cholelithiasis and gallbladder sludge with mild gallbladder wall thickening a nd pericholecystic fluid is suspicious for acute cholecystitis. 2. No biliary ductal dilation. 3. Hepatic steatosis. 4. Right nephrolithiasis. ACT 112: Negative or not required by law. The above report was generated using voice recognition software. It may contain grammatical, syntax or spelling errors. Electronically signed by: Brice Whittington M.D. 02/07/2021 12:14 PM Blood Pressure Blood Pressure Findings: Elevated blood pressure MDM Narrative Patient presents to the emergency department with complaint of generalized abdominal discomfort that has worsened since awakening this morning. CT imaging and ultrasound studies today are consistent with acute cholecystitis. The patient is currently afebrile, but does have a mild leukocytosis. Additional laboratory studies are not suggestive of pancreatitis, cholecystitis, hepatitis or UTI. Clinical exam is not consistent with acute appendicitis or pyelonephritis. Impression & Plan Acute calculous cholecystitis Discharge Plan Visit Data Chief Complaint: Abdominal Pain Stated Complaint: RT SIDED ABD PAIN INTO [place] ED Provider: Berry Lawson ED Midlevel Provider: Sebastian Whiting Discharge Problem: Acute calculous cholecystitis Patient Disposition: Still a Patient Discharge Instructions Interventions: ED Discharge Assessment Last Done: 02/07/21 14:31
--- NOTE | 2021-02-07 17:17 | Anesthesiology Progress Note ---
Date of Service February 07, 2021 Anesthesia Post Procedure Vital Signs Vital Signs: Temp Pulse Pulse Pulse Resp BP BP 02/07/21 17:10 91 H 14 134/98 02/07/21 17:00 92 H 16 130/93 02/07/21 16:50 95 H 18 143/92 H 02/07/21 16:40 80 16 142/95 H 02/07/21 16:30 79 18 133/96 02/07/21 16:20 76 20 137/95 02/07/21 16:15 37.0 C 79 20 143/97 H 02/07/21 14:36 37.1 C 75 16 135/81 02/07/21 12:02 70 18 119/76 02/07/21 10:02 70 16 127/80 02/07/21 09:35 74 20 126/92 02/07/21 08:39 73 16 02/07/21 07:43 36.3 C L 90 18 161/120 H Pulse Ox 02/07/21 17:10 94 02/07/21 17:00 96 02/07/21 16:50 95 02/07/21 16:40 96 02/07/21 16:30 95 02/07/21 16:20 99 02/07/21 16:15 93 02/07/21 14:36 97 02/07/21 12:02 97 02/07/21 10:02 95 02/07/21 09:35 97 02/07/21 08:39 98 02/07/21 07:43 98 Pain Intensity Upper Abdomen: Pain Intensity: 2 Abdomen: Pain Intensity: 2 Transfer of Care Handoff Completed per policy Notes Mental Status: alert / awake / arousable Patient Amnestic to Procedure: Yes Nausea / Vomiting: adequately controlled Pain: adequately controlled Airway Patency, RR, SpO2: stable & adequate BP & HR: stable & adequate Hydration State: stable & adequate Anesthetic Complications: no major complications apparent and Pt Satisfied with anesthetic care
[2021-02-07] MEDS ORDERED: hydrOXYzine HCl 25 MG TAB PO PRN (17:41)
[2021-02-07] MEDS ORDERED: oxyCODONE/ACETAMINOPHEN 5mg/325mg TAB PO PRN (17:41)
[2021-02-07] MEDS ORDERED: MoRPHine SULFATE 2 MG/ML CARP IV PRN (17:41)
[2021-02-07] MEDS ORDERED: ALBUTEROL HFA 8 GM INHALER INH PRN (17:41)
[2021-02-07] MEDS: LACTATED RINGER'S 1,000 ML IV SCH (18:31)
[2021-02-07] MEDS: oxyCODONE/ACETAMINOPHEN 5mg/325mg TAB PO PRN (18:40)
[2021-02-07] MEDS: MoRPHine SULFATE 4 MG/ML 1 ML CARP\\VIAL IV PRN (19:34)
[2021-02-07] MEDS: busPIRone 15 MG TAB PO SCH (20:22)
[2021-02-07] MEDS: FLUTICASONE PROPIONATE NA SPR 16 GM BTL SCH (20:22)
[2021-02-07] MEDS: MONTELUKAST SODIUM 10 MG TABLET PO SCH (20:22)
[2021-02-07] MEDS: QUEtiapine FUMARATE 100 MG TABLET PO SCH (20:22)
[2021-02-08] MEDS: MoRPHine SULFATE 4 MG/ML 1 ML CARP\\VIAL IV PRN ×5 (00:56→19:33)
[2021-02-08] MEDS: LACTATED RINGER'S 1,000 ML IV SCH ×2 (05:47→18:30)
[2021-02-08] MEDS ORDERED: CLINDAMYCIN PHOS 900 MG/6 ML VIAL IV SCH (06:00)
[2021-02-08] MEDS: oxyCODONE/ACETAMINOPHEN 5mg/325mg TAB PO PRN ×4 (07:08→22:10)
[2021-02-08 07:29] LABS: Basophils # (auto) 0.02 K/uL (0-0.2); Basophils % (auto) 0.1 %; Eosinophils # (auto) 0.19 K/uL (0-0.5); Eosinophils % (auto) 1.3 %; Hematocrit (blood only) 39.6 % (37-47); Hemoglobin 12.9 g/dL (12.0-16.0); Immature Granulocytes # (auto) 0.03 K/uL (0.00-0.02); Immature Granulocytes % (auto) 0.2 %; Lymphocytes # (auto) 2.52 K/uL (1.2-3.4); Lymphocytes % (auto) 17.9 %; Mean Corpuscular Hemoglobin 29.9 pg (25-34); Mean Corpuscular Hgb Conc 32.6 g/dL (32-36); Mean Corpuscular Volume 91.7 fL (80-100); Mean Platelet Volume 9.6 fL (7.4-10.4); Monocytes # (auto) 1.01 K/uL (0.11-0.59); Monocytes % (auto) 7.2 %; Neutrophils # (auto) 10.32 K/uL (1.4-6.5); Neutrophils % (auto) 73.3 %; Platelet Count 393 K/uL (130-400); RDW Coefficient of Variation 13.9 % (11.5-14.5); RDW Standard Deviation 46.7 fL (36.4-46.3); Red Blood Count 4.32 M/uL (4.2-5.4); White Blood Count 14.09 K/uL (4.8-10.8)
[2021-02-08 07:54] LABS: BUN Creatinine Ratio 11.4 (10-20); Bilirubin Direct 0.2 mg/dl (0-0.2); Calcium 8.7 mg/dl (8.5-10.1); Creatinine Clr Calc Pharmacy 100.5 ml/min; Est GFR (African American) 76.7 ml/min; Est GFR (Non-African American) 66.2 ml/min; Potassium 4.1 mmol/L (3.5-5.1)
[2021-02-08 07:58] LABS: Bilirubin,Total 0.7 mg/dl (0.2-1); Total Protein 6.8 gm/dl (6.4-8.2)
[2021-02-08] MEDS: busPIRone 15 MG TAB PO SCH ×3 (08:06→19:34)
[2021-02-08] MEDS: FENOFIBRATE NANOCRYSTALLIZED 145 MG TABLET PO SCH (08:06)
[2021-02-08] MEDS: ESCITALOPRAM OXALATE 10 MG TAB PO SCH (08:07)
[2021-02-08] MEDS: FLUTICASONE/VILANTEROL 200/25MCG 14 PUFFS/INHALER INH SCH (08:07)
[2021-02-08] MEDS: FLUTICASONE PROPIONATE NA SPR 16 GM BTL SCH ×2 (08:07→19:34)
[2021-02-08] MEDS ORDERED: KETOROLAC TROMETHAMINE 15 MG/ML VIAL IV ONE (08:09)
--- NOTE | 2021-02-08 08:24 | Surgery Progress Note ---
Date of Service February 08, 2021 Assessment & Plan (1) Acute calculous cholecystitis: POD#1 lap yandy -WBC 14, Tbili: 0.7, AST: 210, ALT: 225 -Patient expressing concerns with being able to void and with post op pain control -Bladder scan was obtained only showing ~40cc retention, overnight patient voided 75cc, it is possible due to body habitus bladder scan may be inaccurate, will ask RN to obtain a straight cath due to patient's symptoms - Will order Toradol for additional pain control - Encourage ongoing ambulation - Okay to advance diet as patient tolerates - Will check up on later today Admission and Anticipated Discharge Date Admission Date: February 07, 2021 Supervising Physician Co-Signing Physician Notes Patient seen and examined, agree with above. POD #1 laparoscopic cholecystectomy for acute calculus cholecystitis. She is still having some right upper quadrant pain that this is improved from yesterday. On exam she is afebrile with stable vitals. Her abdomen is soft, appropriately tender to palpation. Incisions are healing well with Dermabond in place. Labs with leukocytosis to 14, AST and ALT with slight elevation in the bilirubin is normal. We will check on the patient later today, if her symptoms are improved she may be discharged. Likely she will stay overnight and be discharged tomorrow morning. Subjective Patient feeling uncomfortable this AM. Complains of only being able to void very small amounts and has some bladder pressure. She also is having some RUQ discomfort and getting marginal relief from pain medications. Otherwise she is tolerating liquid diet, no nausea/vomiting. Physical Exam Physical Exam: awake/alert, uncomfortable appearing Respiratory: normal respiratory effort Gastrointestinal (Abdomen): Inspection/Auscultation: + abdomen distended (mild) and + abdominal surgical incision (c/d/i, no signs of infection) Percussion/Palpation: + abdomen tender (ttp in RUQ region) and abdomen soft Results & Data ([facility]) Vital Signs (Past 12 Hours) Vital Signs Temp Pulse Resp BP Pulse Ox 02/08/21 03:26 36.4 C L 88 18 123/80 91 02/07/21 22:20 36.7 C 93 H 18 128/79 93 02/07/21 20:29 36.6 C 100 H 18 115/76 94 PG Care Time/CCT Total # of Minutes Spent Total Time Spent with Patient: Total time spent is greater than 50% in coordination of care (as documented) at patient's floor/unit and/or counseling patient: Coding Level of Care Code None Diagnoses Acute calculous cholecystitis K80.00
--- NOTE | 2021-02-08 08:43 | Anesthesiology Progress Note ---
Date of Service February 08, 2021 Anesthesia Post Procedure Vital Signs Vital Signs: Temp Pulse Pulse Resp BP Pulse Ox 02/08/21 08:38 36.3 C L 82 16 148/88 H 94 02/08/21 03:26 36.4 C L 88 18 123/80 91 02/07/21 22:20 36.7 C 93 H 18 128/79 93 02/07/21 20:29 36.6 C 100 H 18 115/76 94 02/07/21 19:27 36.7 C 96 H 16 134/85 94 02/07/21 18:00 36.9 C 92 H 18 139/85 98 02/07/21 17:30 36.3 C L 91 H 16 133/87 98 02/07/21 17:20 36.6 C 90 16 134/96 95 02/07/21 17:10 91 H 14 134/98 94 02/07/21 17:00 92 H 16 130/93 96 02/07/21 16:50 95 H 18 143/92 H 95 02/07/21 16:40 80 16 142/95 H 96 02/07/21 16:30 79 18 133/96 95 02/07/21 16:20 76 20 137/95 99 02/07/21 16:15 37.0 C 79 20 143/97 H 93 02/07/21 14:36 37.1 C 75 16 135/81 97 02/07/21 12:02 70 18 119/76 97 02/07/21 10:02 70 16 127/80 95 02/07/21 09:35 74 20 126/92 97 Pain Intensity Upper Abdomen: Pain Intensity: 2 Abdomen: Pain Intensity: 9 Notes Mental Status: alert / awake / arousable and participated in evaluation Patient Amnestic to Procedure: Yes Nausea / Vomiting: adequately controlled Pain: see Notes below (RN bringing medication for pain currently) Airway Patency, RR, SpO2: stable & adequate BP & HR: stable & adequate Hydration State: stable & adequate Anesthetic Complications: no major complications apparent
[2021-02-08] MEDS ORDERED: NON-FORMULARY MEDICATION (Escitalopram Oxalate 5 mg tablet) PO SCH (09:00)
[2021-02-08] MEDS: KETOROLAC TROMETHAMINE 15 MG/ML VIAL IV PRN (18:28)
[2021-02-08] MEDS: MONTELUKAST SODIUM 10 MG TABLET PO SCH (19:34)
[2021-02-08] MEDS: QUEtiapine FUMARATE 100 MG TABLET PO SCH (19:34)
[2021-02-08] MEDS: ONDANSETRON INJ 2 MG/ML 2 ML VIAL IV PRN (22:09)
[2021-02-09] MEDS: KETOROLAC TROMETHAMINE 15 MG/ML VIAL IV PRN ×2 (00:33→07:21)
[2021-02-09] MEDS: MoRPHine SULFATE 4 MG/ML 1 ML CARP\\VIAL IV PRN (00:50)
[2021-02-09] MEDS ORDERED: oxyCODONE HCL SOLN 5 MG/5 ML UDC PO PRN (01:47)
[2021-02-09] MEDS ORDERED: ALBUT/IPRATROP 3MG/0.5MG NEB 3 ML VIAL NEB STA (01:47)
[2021-02-09] MEDS ORDERED: ACETAMINOPHEN 1,000 MG/100 ML VIAL IV SCH (02:00)
--- NOTE | 2021-02-09 02:27 | Communication Note ---
Date of Service: February 09, 2021 This patient underwent laparoscopic cholecystectomy on 02/07/2021. I was notified by the nurse that patient required straight cath on 2 occasions for 300 and 400 cc of urine respectively. He also notified me that the patient was experiencing some right upper quadrant pain and had wheezing most pronounced in the right lung on auscultation. I have visited with the patient at bedside she did she is having a stabbing pain in the right upper quadrant. She is not having nausea vomiting she is tolerating oral intake. Patient does report history of asthma for which she uses inhalers which she is unsure the name of. Patient says during previous surgery she has not had any difficulties with urinary retention On exam patient's abdomen is rotund with mild distention. Her for laparoscopic surgical sites are clean dry and intact. She is having point tenderness near her surgical incision in the right upper quadrant. On auscultation patient has expiratory wheezing bilaterally but is more pronounced on the right side. She did not appear dyspneic or was not using accessory muscles to aid in respiration. We will proceed as follows: Discontinue her Percocet and place the patient on as needed oxycodone and also supplement her pain medicine with scheduled IV Tylenol Due to her wheezing I will discontinue her IV fluids and we will provide a Duo Neb. I reviewed her medications and she is receiving her home regimen of inhalers Informed the nurse that if patient is unable to void in several hours in an require straight cath again he should do so with a regular Short and if the urine output is greater than 100 cc he should leave the Short in place for bladder rest We will add subcutaneous heparin for DVT prevention
--- NOTE | 2021-02-09 07:56 | Surgery Progress Note ---
Date of Service February 09, 2021 Assessment & Plan (1) Acute calculous cholecystitis: POD#2 laparoscopic cholecystectomy Patient's VSS, but she is still requiring 2L NC. Received albuterol neb overnight, she is ordered for albuterol inhaler this AM, in addition her home medications. Will encourage pulmonary toilet and give patient an incentive spirometer. Encourage ongoing activity Pain regimen has been adjusted overnight to IV Apap, PO oxycodone, IV toradol, and prn IV morphine On exam her incisions are c/d/i, she has some RUQ ttp, non distended She is tolerating a diet without nausea/vomiting We will consider discharge later today if we can wean her off O2 and pain remains well controlled Admission and Anticipated Discharge Date Admission Date: February 07, 2021 Supervising Physician Co-Signing Physician Notes Patient seen and examined, agree with above. POD #2 laparoscopic cholecystectomy. Still with significant right upper quadrant discomfort but this is improving from yesterday. She has not been ambulating much. On exam she is afebrile with stable vitals. Abdomen appropriately tender to palpation. Incisions with Dermabond in place, no evidence of infection. We will order repeat labs to ensure that there is no evidence of choledocholithiasis or bile leak. Otherwise we will transition to all oral pain meds, encourage ambulation and patient be out of bed to chair. Hope for discharge this afternoon versus tomorrow. Activity restrictions and wound care instructions reviewed. Follow- up with me in 2 weeks. Subjective Patient says she feels congested this AM. Required albuterol nebs overnight for wheezing. Inquired about her smoking history and she says she smokes about 1/2ppd. Denies CP or SOB. She also required a 2nd straight catheterization, but reports since then she has voided x1 on her own. Her pain medications have been adjusted, but also says she still has some RUQ pain. She is tolerating a diet without nausea/vomiting. Physical Exam Physical Exam: awake/alert, sitting up at the side of the bed Constitutional: no acute distress Gastrointestinal (Abdomen): Inspection/Auscultation: + abdominal surgical incision (c/d/i, no signs of infection) Percussion/Palpation: + abdomen tender (ttp RUQ) and abdomen soft Results & Data ([facility]) Vital Signs (Past 12 Hours) Vital Signs Temp Pulse Pulse Resp BP Pulse Ox 02/09/21 07:43 96 H 20 90 02/09/21 02:30 97 H 22 90 02/08/21 22:15 36.6 C 87 16 147/80 H 92 PG Care Time/CCT Total # of Minutes Spent Total Time Spent with Patient: Total time spent is greater than 50% in coordination of care (as documented) at patient's floor/unit and/or counseling patient: Coding Level of Care Code None Diagnoses Acute calculous cholecystitis K80.00
[2021-02-09] MEDS: FLUTICASONE PROPIONATE NA SPR 16 GM BTL SCH ×2 (09:33→20:56)
[2021-02-09] MEDS: FLUTICASONE/VILANTEROL 200/25MCG 14 PUFFS/INHALER INH SCH (09:33)
[2021-02-09] MEDS ORDERED: oxyCODONE HCL IR 5 MG TAB (IMMEDIATE RELEASE) PO PRN (09:33)
[2021-02-09] MEDS: busPIRone 15 MG TAB PO SCH ×3 (09:34→20:53)
[2021-02-09] MEDS: ESCITALOPRAM OXALATE 10 MG TAB PO SCH (09:36)
[2021-02-09] MEDS: FENOFIBRATE NANOCRYSTALLIZED 145 MG TABLET PO SCH (09:36)
[2021-02-09] MEDS: HEPARIN SOD 5,000 UNIT/0.5 ML VIAL SQ SCH ×2 (09:42→20:55)
[2021-02-09] MEDS: ACETAMINOPHEN 325 MG TAB PO SCH ×4 (10:21→20:55)
[2021-02-09 11:16] LABS: Albumin Level 2.6 gm/dl (3.4-5.0); BUN Creatinine Ratio 13.8 (10-20); Bilirubin,Total 0.8 mg/dl (0.2-1); Calcium 8.6 mg/dl (8.5-10.1); Creatinine Clr Calc Pharmacy 113.6 ml/min; Est GFR (Non-African American) 76.8 ml/min
[2021-02-09 11:20] LABS: Basophils # (auto) 0.03 K/uL (0-0.2); Basophils % (auto) 0.2 %; Eosinophils # (auto) 0.18 K/uL (0-0.5); Eosinophils % (auto) 1.1 %; Hematocrit (blood only) 38.8 % (37-47); Hemoglobin 12.8 g/dL (12.0-16.0); Immature Granulocytes # (auto) 0.04 K/uL (0.00-0.02); Immature Granulocytes % (auto) 0.2 %; Lymphocytes % (auto) 7.7 %; Mean Corpuscular Hemoglobin 30.5 pg (25-34); Mean Corpuscular Volume 92.6 fL (80-100); Mean Platelet Volume 9.6 fL (7.4-10.4); Monocytes # (auto) 0.45 K/uL (0.11-0.59); Monocytes % (auto) 2.7 %; Neutrophils # (auto) 14.83 K/uL (1.4-6.5); Neutrophils % (auto) 88.1 %; Platelet Count 361 K/uL (130-400); RDW Coefficient of Variation 13.4 % (11.5-14.5); RDW Standard Deviation 44.9 fL (36.4-46.3); Red Blood Count 4.19 M/uL (4.2-5.4); White Blood Count 16.83 K/uL (4.8-10.8)
[2021-02-09 11:33] LABS: Potassium 4.2 mmol/L (3.5-5.1)
[2021-02-09 11:42] LABS: Bilirubin Direct 0.4 mg/dl (0-0.2)
[2021-02-09] MEDS: ONDANSETRON INJ 2 MG/ML 2 ML VIAL IV PRN (12:09)
[2021-02-09] MEDS: oxyCODONE HCL IR 5 MG TAB (IMMEDIATE RELEASE) PO PRN ×2 (12:14→17:31)
[2021-02-09 14:17] LABS: Appearance Urine Clear (Clear); Bacteria Urine Automated Negative (Negative); Bilirubin Urine Negative (Negative); Blood Urine Trace (Negative); Cast Urine Automated 0 /lpf (0-5); Color Urine Yellow; Glucose Urine UA Negative (Negative); Ketones Urine Negative (Negative); Leukocyte Esterase Urine Negative (Negative); Nitrite Urine Negative (Negative); Protein Urine Negative (Negative); RBC Urine Automated 0-4 /hpf (0-4); Specific Gravity Urine 1.008 (1.000-1.030); Urobilinogen Urine Negative (Negative)
[2021-02-09] MEDS: IBUPROFEN 200 MG TAB PO PRN (19:58)
[2021-02-09] MEDS: QUEtiapine FUMARATE 100 MG TABLET PO SCH (20:52)
[2021-02-09] MEDS: MONTELUKAST SODIUM 10 MG TABLET PO SCH (20:53)
[2021-02-10] MEDS: ACETAMINOPHEN 325 MG TAB PO SCH ×3 (02:52→10:48)
[2021-02-10] MEDS: oxyCODONE HCL IR 5 MG TAB (IMMEDIATE RELEASE) PO PRN ×2 (06:00→16:41)
[2021-02-10 07:52] LABS: Basophils # (auto) 0.01 K/uL (0-0.2); Basophils % (auto) 0.1 %; Eosinophils # (auto) 0.34 K/uL (0-0.5); Eosinophils % (auto) 2.7 %; Hematocrit (blood only) 38.1 % (37-47); Hemoglobin 12.4 g/dL (12.0-16.0); Immature Granulocytes # (auto) 0.02 K/uL (0.00-0.02); Immature Granulocytes % (auto) 0.2 %; Lymphocytes # (auto) 0.96 K/uL (1.2-3.4); Lymphocytes % (auto) 7.7 %; Mean Corpuscular Hemoglobin 30.2 pg (25-34); Mean Corpuscular Hgb Conc 32.5 g/dL (32-36); Mean Corpuscular Volume 92.9 fL (80-100); Mean Platelet Volume 9.9 fL (7.4-10.4); Monocytes # (auto) 0.63 K/uL (0.11-0.59); Neutrophils # (auto) 10.55 K/uL (1.4-6.5); Neutrophils % (auto) 84.3 %; Platelet Count 383 K/uL (130-400); RDW Coefficient of Variation 13.5 % (11.5-14.5); RDW Standard Deviation 45.9 fL (36.4-46.3); White Blood Count 12.51 K/uL (4.8-10.8)
[2021-02-10] MEDS: busPIRone 15 MG TAB PO SCH ×3 (08:41→20:25)
[2021-02-10] MEDS: FLUTICASONE PROPIONATE NA SPR 16 GM BTL SCH ×2 (08:42→20:26)
[2021-02-10] MEDS: FLUTICASONE/VILANTEROL 200/25MCG 14 PUFFS/INHALER INH SCH (08:42)
[2021-02-10] MEDS: ESCITALOPRAM OXALATE 10 MG TAB PO SCH (08:42)
[2021-02-10] MEDS: FENOFIBRATE NANOCRYSTALLIZED 145 MG TABLET PO SCH (08:42)
[2021-02-10] MEDS: HEPARIN SOD 5,000 UNIT/0.5 ML VIAL SQ SCH ×2 (08:43→20:26)
[2021-02-10] MEDS: diphenhydrAMINE Capsule 25 MG CAP PO PRN ×2 (09:19→17:27)
--- NOTE | 2021-02-10 10:06 | Surgery Progress Note ---
Date of Service February 10, 2021 Assessment & Plan (1) Acute calculous cholecystitis: s/p lap yandy POD #3 Slow to mobilize. No sign of bile leak or infection. Tolerating regular diet. (2) Obesity: On cpap at home - asked her to have family bring it in. Still remains on oxygen due to low o2 sats. Likely due to obesity hypoventilation. Admission and Anticipated Discharge Date Admission Date: February 07, 2021 Subjective Still complaining of pain in the right upper quadrant. Slow to mobilize and has not been ambulating much. Sitting in chair at bedside. Tolerating diet with no nausea or vomiting. O2 sat low on RA (86%) so is restarting on oxygen. Uses cpap at home but has not had it here. Review of Systems Review of Systems: All systems reviewed & are unremarkable except as noted in HPI & below Physical Exam Constitutional: + obese; no acute distress Respiratory: normal respiratory effort; no respiratory distress Auscultation: lungs clear to auscultation bilaterally Cardiovascular: RRR, no murmur, no edema Gastrointestinal (Abdomen): Inspection/Auscultation: normal bowel sounds and + abdominal surgical incision (incisions clean); abdomen not distended Percussion/Palpation: + abdomen tender (diffusely) and abdomen soft; no guarding Musculoskeletal: Head/Neck/Chest: normocephalic and head atraumatic Neurologic: awake; no focal motor deficits Psychiatric: A+Ox3, euthymic affect Results & Data ([facility]) Vital Signs (Past 12 Hours) Vital Signs Temp Pulse Resp BP Pulse Ox 02/10/21 08:03 36.7 C 89 16 117/77 95 02/09/21 23:02 36.6 C 90 20 121/78 91 Laboratory Results Abnormal lab results 02/09/21 02/09/21 02/09/21 Range/Units 10:13 11:05 11:10 WBC 16.83 H (4.8-10.8) K/uL RBC 4.19 L (4.2-5.4) M/uL Neut # (Auto) 14.83 H (1.4-6.5) K/uL Lymph # (Auto) (1.2-3.4) K/uL [place] # (Auto) (0.11-0.59) K/uL Immature Gran # (Auto) 0.04 H (0.00-0.02) K/uL Sodium 129 L D (136-145) mmol/L Carbon Dioxide 20 L (21-32) mmol/L Glucose 137 H (70-99) mg/dl Direct Bilirubin 0.4 H D (0-0.2) mg/dl AST 125 H (15-37) U/L ALT 205 H (12-78) U/L Albumin 2.6 L (3.4-5.0) gm/dl Urine Blood (Negative) U Epithel Cells (Auto) (0-5) /lpf 02/09/21 02/10/21 Range/Units 14:00 07:06 WBC 12.51 H (4.8-10.8) K/uL RBC 4.10 L (4.2-5.4) M/uL Neut # (Auto) 10.55 H (1.4-6.5) K/uL Lymph # (Auto) 0.96 L (1.2-3.4) K/uL [place] # (Auto) 0.63 H (0.11-0.59) K/uL Immature Gran # (Auto) (0.00-0.02) K/uL Sodium (136-145) mmol/L Carbon Dioxide (21-32) mmol/L Glucose (70-99) mg/dl Direct Bilirubin (0-0.2) mg/dl AST (15-37) U/L ALT (12-78) U/L Albumin (3.4-5.0) gm/dl Urine Blood Trace H (Negative) U Epithel Cells (Auto) 10-20 H (0-5) /lpf
[2021-02-10] MEDS ORDERED: ACETAMINOPHEN 325 MG TAB PO PRN (10:59)
--- NOTE | 2021-02-10 11:21 | XRay Report ---
XR chest 2V PA/lateral HISTORY: 40 years-old Female hypoxia acute hypoxia COMPARISON: Chest radiograph 12/28/2020 TECHNIQUE: PA and lateral views of the chest FINDINGS: Cardiomediastinal and hilar silhouettes are unchanged. Hypoinflation with bronchovascular crowding. N o pneumothorax, large pleural effusion or overt pulmonary edema. Mild bibasilar atelectasis with blun ting of the costophrenic angles. Degenerative changes of the shoulders and spine. IMPRESSION: 1. Hypoinflation with mild bibasilar opacities suggestive of atelectasis. 2. Trace pleural effusions. ACT 112: Negative or not required by law. The above report was generated using voice recognition software. It may contain grammatical, syntax o r spelling errors. Electronically signed by: Brice Whittington M.D. 02/10/2021 11:19 AM
--- NOTE | 2021-02-10 11:50 | Hospitalist Consultation ---
Date of Consultation February 10, 2021 Assessment & Plan (1) Acute respiratory failure with hypoxia: (2) Hemoptysis: (3) Post-operative state: (4) Acute calculous cholecystitis: (5) S/P laparoscopic cholecystectomy: (6) Asthma: (7) Obesity: (8) JEWEL on CPAP: (9) Post-operative pain: Patient is a 40 yo female on POD #3 s/p laparoscopic cholecystectomy. She continues to have hypoxia requiring 2 L/min via nasal cannula. She is saturating well, but typically does not have oxygen need. The patient did have a CXR which showed signs of atelectasis, likely post- operative, and hypoventilation. With cough, hypoxia, and slight hemoptysis, will also check CTA Chest to R/O PE. She does also have asthma, JEWEL, and possible obesity hypoventilation syndrome contributing to reasons for SOB, shallow breathing, and hypoxia. Continue home Advair BID. Start Duoneb scheduled Q6h with PRN Q4h for wheezing/SOB. Seems less likely to be infectious, but will monitor for signs of worsening. Continue incentive spirometry Q1H while awake. Bring CPAP from home to use at bedtime. Encourage movement and deep breathing. Patient has been on opioid pain medications as well post op which can contribute to decreased respiratory drive. Defer to surgical team to consider tapering these as able. Continue O2 supplementation to maintain SaO2 >92%. Titrate as able (10) Prediabetes: Patient is on PO Metformin 500 mg daily at home. Continue to hold while inpatient. Glucose has been <140 when checked. Could consider sliding scale if hyperglycemia becomes an issue Thank you for this consultation. We will follow the patient with you during their hospital stay. You can reach a [facility] via pager @ [phone] or via [place] Text Supervising Physician Co-Signing Physician Notes Care coordinated with 5 Agree with above note. Patient seen and examined. Please refer to her notes for full details. Vital signs reviewed. Physical exam: General exam: Alert and oriented. Not in acute distress. CVS: S1 and S2 heard, regular rate and rhythm, no murmurs. RS: Clear to auscultation,b/l diminished breath sounds ABD: Soft, bowel sounds present, nontender, no distention. RECORDING CLERK: Nonfocal. EXT: No edema, no erythema. Skin erythematous itchy rash on the trunk Labs: Reviewed. Assessment and plan: 40 F with hx of Jewel, asthma , morbid obesity s/p lap yandy. Were consulted as patient developed hypoxia and requiring 2lts oxygen today. Resting comfortably. Says she has some sputum with some blood in it. Afebrile No chest pain. Currently no sob. Hypoxia not in asthma exacerbation didnot use cpap last night- will use tonight atelectasis on cxr because of complaining of bloody sputum CTA chest done CTA chest No PE. Bibasilar mucus plugging and atelectasis mostly started on nebs atc and prn po doxycyline incentive spirometry Hypoxia most likely from atelectasis If any concerns for pneumonia will broaden abx. close monitor Skin Rash: developed erythematous rash on the trunk, itchy It was there from am. received benadryl in am not improving also received Rocephin for possible pneumonia and it is stopped as she had pcn allergy received another dose of benadryl and a dose of iv solumedrol will monitor Other diagnosis and plan of care as Sharifa Finley PA-C. Adrian jenkins MD. History of Present Illness Reason for Consultation: Persistent hypoxia Requesting Physician: Dr. Vargas Attending Physician: Bryan Tran DO, FUNMILAYO History of Present Illness Patient is a 40 yo female admitted to the hospital on 02/07 with concern of cholecystitis. She underwent laparoscopic cholecystectomy on 02/07. She is currently POD #3. Vital signs have been stable other than persistent hypoxia. The patient does have history of asthma and JEWEL on CPAP. She is morbidly obese. She is currently having pain related to surgery, coughing with some bloody sputum, and some mild SOB. She notes that when she is coughing, her post-op pain is worse. She also notes mild tightness in her chest with breathing but no pain. She had a CXR this morning. These images were personally reviewed by me. Radiology noted that she had hypoinflation of the lungs with small amount of atelectasis in B/L lungs. Possible trace pleural effusions. The patient is currently on 2L/min via nasal cannula and saturating well. WBC count this AM was 12.5. Improving. COVID testing upon admission was negative. UA last night was unrevealing. LFTs have been trending down since surgery. She notes that he appetite is poor. She has no dysphagia. She notes that her lymph nodes feel swollen on the right side of her neck. She was treated with Azithromycin and Prednisone about 3 weeks ago for an asthma flare outpatient. She had been doing well from an asthma perspective though right before admission. She uses twice daily Advair at home, and she rarely needs her albuterol inhaler. She does use her CPAP regularly. Allergies Allergy/AdvReac Type Severity Reaction Status Date / Time Penicillins Allergy Severe hives,difficulty Verified 02/07/21 08:39 breathing Home Medications Medication Instructions Recorded Confirmed Type albuterol sulfate 2 puff INHALATION Q4H PRN 04/01/19 02/07/21 History buspirone 15 mg PO TID 04/01/19 02/07/21 History escitalopram oxalate 5 mg PO QAM 04/01/19 02/07/21 History fenofibrate nanocrystallized 145 mg PO QAM 04/01/19 02/07/21 History fluticasone propionate 1 spray INTRANASAL BID 04/01/19 02/07/21 History hydroxyzine pamoate 25 mg PO TID PRN 04/01/19 02/07/21 History montelukast 10 mg PO QPM 04/01/19 02/07/21 History quetiapine 100 mg PO HS 04/01/19 02/07/21 History escitalopram oxalate 10 mg PO QAM 07/22/20 02/07/21 History fluticasone propion-salmeterol 1 inh INHALATION BID 07/22/20 02/07/21 History metformin 500 mg PO PM 07/22/20 02/07/21 History naproxen 500 mg PO BID PRN #20 tab 07/22/20 02/07/21 Rx losartan 12.5 mg PO QAM 10/19/20 02/07/21 History ondansetron HCl [Zofran] 4 mg PO Q6H PRN #20 tab 12/28/20 02/07/21 Rx oxycodone 5 - 10 mg PO .[id number] PRN #15 tab 02/09/21 Rx Patient History Medical History (Updated 02/10/21 @ 12:47 by Sharifa Finley PA-C) Anxiety Asthma Condyloma acuminata Depression Fatty liver History of ovarian cyst Hyperinsulinemia Hyperlipemia Obesity JEWEL on CPAP Prediabetes Recurrent sinus infections Urge and stress incontinence Surgical History (Updated 02/10/21 @ 12:20 by Sharifa Finley PA-C) H/O sinus surgery H/O tubal ligation H/O wisdom tooth extraction Hx of tonsillectomy S/P partial hysterectomy "Ovaries intact " Status post hysteroscopic ablation of endometrium Family History Father Depression Mother Depression Uncle Colorectal cancer maternal Denies family history of Ovarian cancer Breast cancer Social History Smoking Status: Current every day smoker Age Started Using Tobacco: 12; Cigarettes Per Day: 10; Hx Alcohol Use: No Hx Substance Use: No Preferred Language: French marital status: Single Feels Safe at Home: Yes Seatbelt Use: always Assistive Devices: Oxygen - Continuous Review of Systems Review of Systems: All systems reviewed & are unremarkable except as noted in HPI & below Physical Exam Constitutional: + morbidly obese; no acute distress and no altered mental status Eyes: PERRL, conjunctivae normal, anicteric sclerae ENMT: Ears: no hearing impairment Nose: no external nose abnormality Neck: trachea midline, no thyromegaly + thick neck Right anterior chain lymphadenopathy with mild tenderness. Respiratory: + cough (mild, dry); no respiratory distress, no labored breathing, does not use accessory muscles, no audible wheezes and no nasal flaring Auscultation: + diminished lung sounds (especially in bases), + rhonchi (throughout right lung hurd) and + wheezes (mild throughout all lung hurd) Cardiovascular: RRR, no murmur, no edema Extremities: + pedal edema (Mild B/L. Nonpitting); no calf tenderness and no edema (B/L LE) Psychiatric: Orientation: alert and oriented x 3 Affect: + depressed affect Results & Data Results & Data ([facility]) Vital Signs (Past 12 Hours) Vital Signs Temp Pulse Resp BP Pulse Ox 02/10/21 08:03 36.7 C 89 16 117/77 95 Laboratory Results Laboratory Results - last 24 hr 02/09/21 02/10/21 02/10/21 14:00 07:06 11:34 WBC 12.51 H RBC 4.10 L Hgb 12.4 Hct 38.1 MCV 92.9 MCH 30.2 MCHC 32.5 RDW Std Deviation 45.9 RDW Coeff of [place] 13.5 Plt Count 383 MPV 9.9 Immature Gran % (Auto) 0.2 Neut % (Auto) 84.3 Lymph % (Auto) 7.7 [place] % (Auto) 5.0 Eos % (Auto) 2.7 Baso % (Auto) 0.1 Neut # (Auto) 10.55 H Lymph # (Auto) 0.96 L [place] # (Auto) 0.63 H Eos # (Auto) 0.34 Baso # (Auto) 0.01 Immature Gran # (Auto) 0.02 Sodium Pending Potassium 4.2 Chloride 101 Carbon Dioxide 32 Anion Gap 3.0 BUN 9 Creatinine 0.81 Est Cr Clr Drug Dosing 129.1 Est GFR ( Amer) 103.8 Est GFR (Non-Af Amer) 89.6 BUN/Creatinine Ratio 11.3 Glucose 104 H Osmolality Calcium 9.2 Total Bilirubin 0.7 AST 69 H ALT 155 H Alkaline Phosphatase 77 Total Protein 7.0 Albumin 2.8 L Globulin 4.2 H Albumin/Globulin Ratio 0.7 L TSH 0.715 Urine Color Yellow Urine Appearance Clear Urine pH 6.0 Ur Specific [place] 1.008 Urine Protein Negative Urine Glucose (UA) Negative Urine Ketones Negative Urine Blood Trace H Urine Nitrite Negative Urine Bilirubin Negative Urine Urobilinogen Negative Ur Leukocyte Esterase Negative Urine WBC (Auto) 1-5 Urine RBC (Auto) 0-4 U Hyaline Cast (Auto) 0 U Epithel Cells (Auto) 10-20 H Urine Bacteria (Auto) Negative 02/10/21 11:34 WBC RBC Hgb Hct MCV MCH MCHC RDW Std Deviation RDW Coeff of [place] Plt Count MPV Immature Gran % (Auto) Neut % (Auto) Lymph % (Auto) [place] % (Auto) Eos % (Auto) Baso % (Auto) Neut # (Auto) Lymph # (Auto) [place] # (Auto) Eos # (Auto) Baso # (Auto) Immature Gran # (Auto) Sodium Potassium Chloride Carbon Dioxide Anion Gap BUN Creatinine Est Cr Clr Drug Dosing Est GFR ( Amer) Est GFR (Non-Af Amer) BUN/Creatinine Ratio Glucose Osmolality 285 Calcium Total Bilirubin AST ALT Alkaline Phosphatase Total Protein Albumin Globulin Albumin/Globulin Ratio TSH Urine Color Urine Appearance Urine pH Ur Specific [place] Urine Protein Urine Glucose (UA) Urine Ketones Urine Blood Urine Nitrite Urine Bilirubin Urine Urobilinogen Ur Leukocyte Esterase Urine WBC (Auto) Urine RBC (Auto) U Hyaline Cast (Auto) U Epithel Cells (Auto) Urine Bacteria (Auto) Diagnostic Findings CXR: IMPRESSION: 1. Hypoinflation with mild bibasilar opacities suggestive of atelectasis. 2. Trace pleural effusions.
[2021-02-10] MEDS ORDERED: ALBUT/IPRATROP 3MG/0.5MG NEB 3 ML VIAL NEB PRN (11:54)
[2021-02-10 12:04] LABS: Albumin Level 2.8 gm/dl (3.4-5.0); BUN Creatinine Ratio 11.3 (10-20); Calcium 9.2 mg/dl (8.5-10.1); Creatinine Clr Calc Pharmacy 129.1 ml/min; Est GFR (African American) 103.8 ml/min; Est GFR (Non-African American) 89.6 ml/min; Potassium 4.2 mmol/L (3.5-5.1)
[2021-02-10 12:15] LABS: Albumin Globulin Ratio 0.7 (0.9-2); Bilirubin,Total 0.7 mg/dl (0.2-1); Globulin 4.2 gm/dl (2.5-4.0); Thyroid Stimulating Hormone 0.715 uIu/ml (0.300-4.500)
[2021-02-10] MEDS: ALBUT/IPRATROP 3MG/0.5MG NEB 3 ML VIAL NEB SCH ×3 (12:58→19:36)
[2021-02-10] MEDS ORDERED: OPTIRAY 350 500ml IV ONE (13:27)
--- NOTE | 2021-02-10 13:52 | CT Scan Report ---
CT angio chest PE protocol CT DOSE: 759.75 mGy.cm HISTORY: 40 years-old Female with PE. Acute cough with shortness of breath TECHNIQUE: Multiple CTA images of the chest were obtained after the intravenous administration of 90 ml Optiray. Coronal and sagittal MIPS were obtained from the axial data set and were submitted for r eview. All measurements were obtained according to NASCET criteria. A dose lowering technique was ut ilized adhering to the principles of ALARA. COMPARISON: Chest radiographs of same day, CT abdomen and pelvis 07/22/2020 FINDINGS: CTA: The heart is normal in size. There is no pericardial effusion. No thoracic aortic aneurysm or dissect ion identified. The pulmonary artery is opacified to level of the proximal segmental branches and dem onstrates no filling defects to suggest thromboembolic disease. CT CHEST: Unremarkable thyroid. No adenopathy. Linear predominant dependent bibasilar consolidation. Bibasilar mucous plugging. No pneumothorax or pleural effusion. There is no pneumoperitoneum. Hepatomegaly with hepatic steatosis. Unremarkable soft tissues. There i s no acute fracture. IMPRESSION: 1. No pulmonary emboli. 2. Bibasilar mucous plugging with linear dependent and bibasilar consolidation suggestive of atelecta sis. Pneumonia would be difficult to exclude. 3. Hepatomegaly with hepatic steatosis. ACT 112: Negative or not required by law. The above report was generated using voice recognition software. It may contain grammatical, syntax o r spelling errors. Electronically signed by: Brice Whittington M.D. 02/10/2021 1:51 PM
[2021-02-10] MEDS ORDERED: cefTRIAXone SODIUM 2,000 MG in DEXTROSE 5% 50 ML IV SCH (16:00)
[2021-02-10] MEDS ORDERED: methylPREDNISolone 50 MG in SYRINGE 0 ML IV ONE (18:00)
[2021-02-10] MEDS: DOXYCYCLINE HYCLATE 100 MG CAP PO SCH (20:25)
[2021-02-10] MEDS: QUEtiapine FUMARATE 100 MG TABLET PO SCH (20:26)
[2021-02-10] MEDS: MONTELUKAST SODIUM 10 MG TABLET PO SCH (20:26)
[2021-02-11] MEDS: ALBUT/IPRATROP 3MG/0.5MG NEB 3 ML VIAL NEB SCH ×4 (00:24→19:19)
[2021-02-11] MEDS: diphenhydrAMINE Capsule 25 MG CAP PO PRN (06:28)
[2021-02-11 07:26] LABS: Basophils # (auto) 0.01 K/uL (0-0.2); Basophils % (auto) 0.1 %; Eosinophils # (auto) 0.01 K/uL (0-0.5); Eosinophils % (auto) 0.1 %; Immature Granulocytes # (auto) 0.02 K/uL (0.00-0.02); Immature Granulocytes % (auto) 0.1 %; Lymphocytes # (auto) 0.87 K/uL (1.2-3.4); Lymphocytes % (auto) 6.4 %; Mean Corpuscular Hemoglobin 29.9 pg (25-34); Mean Corpuscular Hgb Conc 33.3 g/dL (32-36); Mean Corpuscular Volume 89.8 fL (80-100); Monocytes # (auto) 0.39 K/uL (0.11-0.59); Monocytes % (auto) 2.9 %; Neutrophils # (auto) 12.21 K/uL (1.4-6.5); Neutrophils % (auto) 90.4 %; Platelet Count 399 K/uL (130-400); RDW Coefficient of Variation 13.4 % (11.5-14.5); RDW Standard Deviation 44.2 fL (36.4-46.3); Red Blood Count 4.01 M/uL (4.2-5.4); White Blood Count 13.51 K/uL (4.8-10.8)
[2021-02-11 07:59] LABS: Albumin Level 2.7 gm/dl (3.4-5.0); BUN Creatinine Ratio 16.8 (10-20); Creatinine Clr Calc Pharmacy 137.6 ml/min; Est GFR (African American) 112.1 ml/min; Est GFR (Non-African American) 96.8 ml/min; Magnesium 2.3 mg/dl (1.8-2.4)
[2021-02-11 08:02] LABS: Albumin Globulin Ratio 0.6 (0.9-2); Bilirubin,Total 0.4 mg/dl (0.2-1); Globulin 4.3 gm/dl (2.5-4.0)
[2021-02-11] MEDS: FENOFIBRATE NANOCRYSTALLIZED 145 MG TABLET PO SCH (08:16)
[2021-02-11] MEDS: ESCITALOPRAM OXALATE 10 MG TAB PO SCH (08:16)
[2021-02-11] MEDS: FLUTICASONE/VILANTEROL 200/25MCG 14 PUFFS/INHALER INH SCH (08:18)
[2021-02-11] MEDS: FLUTICASONE PROPIONATE NA SPR 16 GM BTL SCH ×2 (08:19→20:15)
[2021-02-11] MEDS: HEPARIN SOD 5,000 UNIT/0.5 ML VIAL SQ SCH ×2 (08:19→20:17)
[2021-02-11] MEDS: DOXYCYCLINE HYCLATE 100 MG CAP PO SCH ×2 (08:20→20:15)
[2021-02-11] MEDS: busPIRone 15 MG TAB PO SCH ×3 (08:24→20:16)
[2021-02-11] MEDS ORDERED: HYDROCORTISONE 1% CRM 30 GM TUBE EXT PRN (10:33)
--- NOTE | 2021-02-11 10:38 | Surgery Progress Note ---
Date of Service February 11, 2021 Assessment & Plan (1) Acute calculous cholecystitis: s/p lap yandy POD #4 Slow to mobilize. No sign of bile leak or infection. Tolerating regular diet. (2) Obesity: Hypoxia - still with oxygen requirement. Appreciate medicine eval. Continue incentive sprirometer, increase activity. (3) Rash: Unclear of source (? morphine given time of onset). She is no longer on morphine. Has benadryl and I ordered hydrocortisone cream. Admission and Anticipated Discharge Date Admission Date: February 07, 2021 Subjective Pain controlled with PO oxycodone. Main complaint is of rash involving arm, abdomen. Itchy. Tolerating diet. Appreciate med eval yesterday - cxr and ct angio showed atelectasis, mucus plugging, no PE. Still with oxygen requirement. using incentive spirometer, ambulating in hallway. Review of Systems Review of Systems: All systems reviewed & are unremarkable except as noted in HPI & below has an intermittent cough Physical Exam Constitutional: + obese; no acute distress Respiratory: normal respiratory effort; no respiratory distress Auscultation: lungs clear to auscultation bilaterally Cardiovascular: RRR, no murmur, no edema Gastrointestinal (Abdomen): Inspection/Auscultation: normal bowel sounds and + abdominal surgical incision (incisions clean); abdomen not distended Percu ssion/Palpation: abdomen soft; abdomen nontender and no guarding Musculoskeletal: Head/Neck/Chest: normocephalic and head atraumatic Neurologic: awake; no focal motor deficits Psychiatric: A+Ox3, euthymic affect Results & Data ([facility]) Vital Signs (Past 12 Hours) Vital Signs Temp Pulse Pulse Resp BP Pulse Ox 02/11/21 08:01 36.8 C 87 18 128/82 92 02/11/21 07:42 81 18 87 L 02/10/21 22:41 37.4 C 96 H 18 135/81 90 Laboratory Results 02/11/21 02/11/21 02/11/21 Range/Units 09:46 06:36 06:36 WBC 13.51 H (4.8-10.8) K/uL RBC 4.01 L (4.2-5.4) M/uL Hgb 12.0 (12.0-16.0) g/dL Hct 36.0 L (37-47) % MCV 89.8 (80-100) fL MCH 29.9 (25-34) pg MCHC 33.3 (32-36) g/dL RDW Std Deviation 44.2 (36.4-46.3) fL RDW Coeff of Tiffanie 13.4 (11.5-14.5) % Plt Count 399 (130-400) K/uL MPV 10.0 (7.4-10.4) fL Immature Gran % (Auto) 0.1 % Neut % (Auto) 90.4 % Lymph % (Auto) 6.4 % Potter % (Auto) 2.9 % Eos % (Auto) 0.1 % Baso % (Auto) 0.1 % Neut # (Auto) 12.21 H (1.4-6.5) K/uL Lymph # (Auto) 0.87 L (1.2-3.4) K/uL Potter # (Auto) 0.39 (0.11-0.59) K/uL Eos # (Auto) 0.01 (0-0.5) K/uL Baso # (Auto) 0.01 (0-0.2) K/uL Immature Gran # (Auto) 0.02 (0.00-0.02) K/uL Sodium 136 (136-145) mmol/L Potassium 4.0 (3.5-5.1) mmol/L Chloride 102 (98-107) mmol/L Carbon Dioxide 28 (21-32) mmol/L Anion Gap 6.0 (3-11) BUN 13 (7-18) mg/dl Creatinine 0.76 (0.6-1.2) mg/dl Est Cr Clr Drug Dosing 137.6 ml/min Est GFR ( Amer) 112.1 ml/min Est GFR (Non-Af Amer) 96.8 ml/min BUN/Creatinine Ratio 16.8 (10-20) Glucose 131 H (70-99) mg/dl Osmolality (280-300) mOsm/kg Calcium 9.0 (8.5-10.1) mg/dl Magnesium 2.3 (1.8-2.4) mg/dl Total Bilirubin 0.4 (0.2-1) mg/dl AST 28 (15-37) U/L ALT 109 H (12-78) U/L Alkaline Phosphatase 78 (45-117) U/L Total Protein 7.0 (6.4-8.2) gm/dl Albumin 2.7 L (3.4-5.0) gm/dl Globulin 4.3 H (2.5-4.0) gm/dl Albumin/Globulin Ratio 0.6 L (0.9-2) TSH (0.300-4.500) uIu/ml Urine Osmolality 187 L (500-800) mOsm/kg 02/10/21 02/10/21 Range/Units 11:34 11:34 WBC (4.8-10.8) K/uL RBC (4.2-5.4) M/uL Hgb (12.0-16.0) g/dL Hct (37-47) % MCV (80-100) fL MCH (25-34) pg MCHC (32-36) g/dL RDW Std Deviation (36.4-46.3) fL RDW Coeff of Tiffanie (11.5-14.5) % Plt Count (130-400) K/uL MPV (7.4-10.4) fL Immature Gran % (Auto) % Neut % (Auto) % Lymph % (Auto) % Potter % (Auto) % Eos % (Auto) % Baso % (Auto) % Neut # (Auto) (1.4-6.5) K/uL Lymph # (Auto) (1.2-3.4) K/uL Potter # (Auto) (0.11-0.59) K/uL Eos # (Auto) (0-0.5) K/uL Baso # (Auto) (0-0.2) K/uL Immature Gran # (Auto) (0.00-0.02) K/uL Sodium 136 D (136-145) mmol/L Potassium 4.2 (3.5-5.1) mmol/L Chloride 101 (98-107) mmol/L Carbon Dioxide 32 (21-32) mmol/L Anion Gap 3.0 (3-11) BUN 9 (7-18) mg/dl Creatinine 0.81 (0.6-1.2) mg/dl Est Cr Clr Drug Dosing 129.1 ml/min Est GFR ( Amer) 103.8 ml/min Est GFR (Non-Af Amer) 89.6 ml/min BUN/Creatinine Ratio 11.3 (10-20) Glucose 104 H (70-99) mg/dl Osmolality 285 (280-300) mOsm/kg Calcium 9.2 (8.5-10.1) mg/dl Magnesium (1.8-2.4) mg/dl Total Bilirubin 0.7 (0.2-1) mg/dl AST 69 H (15-37) U/L ALT 155 H (12-78) U/L Alkaline Phosphatase 77 (45-117) U/L Total Protein 7.0 (6.4-8.2) gm/dl Albumin 2.8 L (3.4-5.0) gm/dl Globulin 4.2 H (2.5-4.0) gm/dl Albumin/Globulin Ratio 0.7 L (0.9-2) TSH 0.715 (0.300-4.500) uIu/ml Urine Osmolality (500-800) mOsm/kg
[2021-02-11] MEDS: SODIUM CHLOR 7% 4 ML NEB NEB SCH ×2 (13:00→19:38)
--- NOTE | 2021-02-11 16:23 | Hospitalist Progress Note ---
Date of Service February 11, 2021 Assessment & Plan (1) Acute respiratory failure with hypoxia: (2) Hemoptysis: (3) Post-operative state: (4) Acute calculous cholecystitis: (5) S/P laparoscopic cholecystectomy: (6) Asthma: (7) Obesity: (8) JEWEL on CPAP: (9) Post-operative pain: Acute respiratory failure with hypoxia Secondary to mucous plugging, atelectasis -CTA: No pulmonary emboli. Bibasilar mucous plugging with linear dependent and bibasilar consolidation suggestive of atelectasis. Pneumonia would be difficult to exclude. Hepatomegaly with hepatic steatosis. No signs of asthma exacerbation -Started on hypertonic saline -Continue pulmonary hygiene with flutter, incentive spirometry -Encouraged to ambulate -Continue supplemental oxygen as needed Check procalcitonin Continue home inhalers Erythematous itchy rash ? Likely secondary to Rocephin Continue hydrocortisone cream Start on low-dose prednisone Benadryl as needed Rocephin discontinued Acute calculus cholecystitis s/p laparoscopic cholecystectomy postop day 4 Pain control, wound care as per primary team Surgery following Monitoring diet JEWEL Possible obesity hypoventilation syndrome Continue CPAP at bedtime. (10) Prediabetes: on PO Metformin 500 mg daily Mood disorder Continue home medication DVT prophylaxis Heparin SQ Thank you for this consultation. We will follow the patient with you during their hospital stay. You can reach a member of the [facility] Hospitalist Team 14/04 via pager @ [phone] or via [place] Text Admission and Anticipated Discharge Date Admission Date: February 07, 2021 Subjective Patient is seen and examined at bedside States having erythematous itchy rash on her chest, abdomen Reports non expectorant cough Denies shortness of breath, chest pain, dizziness, nausea, abdominal pain Tolerates diet Saturating low 90s on 2 L of supplemental oxygen Review of Systems Review of Systems: All systems reviewed & are unremarkable except as noted in HPI & below Physical Exam Physical Exam: Physical Exam: Vitals signs as noted above General Appearance:Morbidly Obese, no apparent distress Head: normocephalic, Atraumatic Eyes: normal inspection, EOMI Neck: supple, Trachea midline Respiratory/Chest: Decreased breath sounds, CTA Cardiovascular: S1, S2, No murmur Abdomen/GI:Soft, Non tender, Bowel sounds present, +Surgical scars Extremities/Musculoskeletal:normal inspection, 1+ B/L LE edema Neurologic/Psych:AAOX3, grossly no focal neurological deficits Skin: normal color, warm, + erythematous rash on chest, abdomen Results & Data Results & Data ([facility]) Vital Signs (Past 12 Hours) Vital Signs Temp Pulse Resp BP Pulse Ox 02/11/21 13:01 86 18 92 02/11/21 08:01 36.8 C 87 18 128/82 92 02/11/21 07:42 81 18 87 L Laboratory Results Short CBC 02/11/21 Range/Units 06:36 WBC 13.51 H (4.8-10.8) K/uL Hgb 12.0 (12.0-16.0) g/dL Hct 36.0 L (37-47) % Plt Count 399 (130-400) K/uL BMP 02/11/21 06:36 Sodium 136 Potassium 4.0 Chloride 102 Carbon Dioxide 28 BUN 13 Creatinine 0.76 Glucose 131 H Calcium 9.0 Liver Function 02/11/21 Range/Units 06:36 Total Bilirubin 0.4 (0.2-1) mg/dl AST 28 (15-37) U/L ALT 109 H (12-78) U/L Alkaline Phosphatase 78 (45-117) U/L Albumin 2.7 L (3.4-5.0) gm/dl
[2021-02-11] MEDS: predniSONE 10 MG TABLET PO SCH (18:44)
[2021-02-11] MEDS: IBUPROFEN 200 MG TAB PO PRN (20:14)
[2021-02-11] MEDS: MONTELUKAST SODIUM 10 MG TABLET PO SCH (20:15)
[2021-02-11] MEDS: QUEtiapine FUMARATE 100 MG TABLET PO SCH (20:15)
[2021-02-12] MEDS: ALBUT/IPRATROP 3MG/0.5MG NEB 3 ML VIAL NEB SCH ×3 (00:31→13:20)
[2021-02-12 06:09] LABS: Basophils # (auto) 0.02 K/uL (0-0.2); Basophils % (auto) 0.2 %; Eosinophils # (auto) 0.18 K/uL (0-0.5); Eosinophils % (auto) 1.6 %; Hematocrit (blood only) 34.9 % (37-47); Hemoglobin 11.4 g/dL (12.0-16.0); Immature Granulocytes # (auto) 0.03 K/uL (0.00-0.02); Immature Granulocytes % (auto) 0.3 %; Lymphocytes # (auto) 2.44 K/uL (1.2-3.4); Lymphocytes % (auto) 22.4 %; Mean Corpuscular Hgb Conc 32.7 g/dL (32-36); Mean Corpuscular Volume 91.8 fL (80-100); Mean Platelet Volume 9.8 fL (7.4-10.4); Monocytes # (auto) 0.44 K/uL (0.11-0.59); Neutrophils % (auto) 71.5 %; Platelet Count 420 K/uL (130-400); RDW Coefficient of Variation 13.8 % (11.5-14.5); RDW Standard Deviation 46.5 fL (36.4-46.3); White Blood Count 10.91 K/uL (4.8-10.8)
[2021-02-12 06:37] LABS: Albumin Level 2.6 gm/dl (3.4-5.0); BUN Creatinine Ratio 22.6 (10-20); Calcium 8.7 mg/dl (8.5-10.1); Est GFR (African American) 108.7 ml/min; Est GFR (Non-African American) 93.8 ml/min; Potassium 3.8 mmol/L (3.5-5.1)
[2021-02-12 06:40] LABS: Albumin Globulin Ratio 0.7 (0.9-2); Bilirubin,Total 0.4 mg/dl (0.2-1); Total Protein 6.6 gm/dl (6.4-8.2)
[2021-02-12] MEDS: SODIUM CHLOR 7% 4 ML NEB NEB SCH (07:16)
--- NOTE | 2021-02-12 08:11 | Surgery Progress Note ---
Date of Service February 12, 2021 Assessment & Plan (1) Acute calculous cholecystitis: POD#5 lap cholecystectomy Events reviewed from the weekend... had a CXR and CT chest ordered for low O2 sats--> negative for PE, + atelectasis. Hospitalists have been consulted and appreciate their assistance with helping patient come off O2, she is now on room air saturating well. She has also been started on benadryl and low dose prednisone for a rash on her trunk that is resolving Tolerating a regular diet, + bowel function Pain well controlled, incisions c/d/i She feels stable for discharge today, will discuss with hospitalists for any changes in her medication regimen and plan to dispo later today Plan for follow up in clinic with Dr. Tran in 1-2 weeks Admission and Anticipated Discharge Date Admission Date: February 11, 2021 Supervising Physician Co-Signing Physician Notes Patient seen and examined, agree with above. Status post laparoscopic cholecystectomy. Weekend events noted, she is now off oxygen and satting fine on room air. She appears much better than she did on Friday. On exam she is afebrile with stable vitals. Incisions with Dermabond, no evidence of infection. Abdomen soft, appropriately tender to palpation. Plan for discharge follow-up with me in 2 weeks. Activity restrictions and wound care instructions reviewed. Return precautions given. Subjective Patient says she is feeling much better today. Denies any SOB or congestion, breathing comfortable on room air. Still has some RUQ pain, but says this is improving each day. She is tolerating a diet without nausea/vomiting. She is having + bowel function and voiding on her own. She is working on being more ambulatory. Had a rash over the weekend that is resolving. Physical Exam Physical Exam: awake/alert Constitutional: no acute distress Respiratory: normal respiratory effort (on room air) Gastrointestinal (Abdomen): Inspection/Auscultation: + abdominal surgical incision (c/d/i, no signs of infection) Percussion/Palpation: + abdomen te nder (mild ruq ttp) and abdomen soft Results & Data ([facility]) Vital Signs (Past 12 Hours) Vital Signs Temp Pulse Pulse Resp BP Pulse Ox 02/12/21 07:17 18 95 02/12/21 00:31 74 18 93 02/11/21 22:12 36.8 C 85 18 124/82 92 02/11/21 20:09 36.8 C 92 H 20 116/74 92 PG Care Time/CCT Total # of Minutes Spent Total Time Spent with Patient: Total time spent is greater than 50% in coordinat ion of care (as documented) at patient's floor/unit and/or counseling patient: Coding Level of Care Code None Diagnoses Acute calculous cholecystitis K80.00
[2021-02-12] MEDS: ONDANSETRON INJ 2 MG/ML 2 ML VIAL IV PRN (08:51)
[2021-02-12] MEDS: ESCITALOPRAM OXALATE 10 MG TAB PO SCH (10:12)
[2021-02-12] MEDS: HEPARIN SOD 5,000 UNIT/0.5 ML VIAL SQ SCH (10:13)
[2021-02-12] MEDS: predniSONE 10 MG TABLET PO SCH (10:13)
[2021-02-12] MEDS: busPIRone 15 MG TAB PO SCH (10:13)
[2021-02-12] MEDS: FLUTICASONE PROPIONATE NA SPR 16 GM BTL SCH (10:13)
[2021-02-12] MEDS: FENOFIBRATE NANOCRYSTALLIZED 145 MG TABLET PO SCH (10:13)
[2021-02-12] MEDS: FLUTICASONE/VILANTEROL 200/25MCG 14 PUFFS/INHALER INH SCH (10:13)
[2021-02-12] MEDS: DOXYCYCLINE HYCLATE 100 MG CAP PO SCH (10:14)
--- NOTE | 2021-02-12 11:33 | Hospitalist Progress Note ---
Date of Service February 12, 2021 Assessment & Plan (1) Acute respiratory failure with hypoxia: (2) Hemoptysis: (3) Post-operative state: (4) Acute calculous cholecystitis: (5) S/P laparoscopic cholecystectomy: (6) Asthma: (7) Obesity: (8) JEWEL on CPAP: (9) Post-operative pain: Acute respiratory failure with hypoxia Secondary to mucous plugging, atelectasis -CTA: No pulmonary emboli. Bibasilar mucous plugging with linear dependent and bibasilar consolidation suggestive of atelectasis. Pneumonia would be difficult to exclude. Hepatomegaly with hepatic steatosis. No signs of asthma exacerbation -Received hypertonic saline -Continue pulmonary hygiene with flutter, incentive spirometry -Encouraged to ambulate Normal procalcitonin Continue home inhalers Weaned off of supplemental oxygen Saturating well on room air currently Erythematous itchy rash Likely secondary to Rocephin Continue hydrocortisone cream PRN Continue low-dose prednisone for 2 more days upon discharge Benadryl as needed Rocephin discontinued Resolved Acute calculus cholecystitis s/p laparoscopic cholecystectomy postop day 5 Pain control, wound care as per primary team Surgery following Tolerating diet JEWEL Possible obesity hypoventilation syndrome Continue CPAP at bedtime. (10) Prediabetes: on PO Metformin 500 mg daily Mood disorder Continue home medication DVT prophylaxis Heparin SQ Thank you for this consultation. We will follow the patient with you during their hospital stay. You [facility] via pager @ [phone] or via [place] Text Admission and Anticipated Discharge Date Admission Date: February 11, 2021 Subjective Patient is seen and examined at bedside Doing well today Erythematous itchy rash on her chest, abdomen resolved Minimal non expectorant cough Denies shortness of breath, chest pain, dizziness, nausea, abdominal pain Saturating well on room air Review of Systems Review of Systems: All systems reviewed & are unremarkable except as noted in HPI & below Physical Exam Physical Exam: Physical Exam: Vitals signs as noted above General Appearance:Morbidly Obese, no apparent distress Head: normocephalic, Atraumatic Eyes: normal inspection, EOMI Neck: supple, Trachea midline Respiratory/Chest: Decreased breath sounds, CTA Cardiovascular: S1, S2, No murmur Abdomen/GI:Soft, Non tender, Bowel sounds present, +Surgical scars Extremities/Musculoskeletal:normal inspection, 1+ B/L LE edema Neurologic/Psych:AAOX3, grossly no focal neurological deficits Skin: normal color, warm, + erythematous rash on chest, abdomen resolved Results & Data Results & Data ([facility]) Vital Signs (Past 12 Hours) Vital Signs Temp Pulse Resp BP Pulse Ox 02/12/21 08:51 37 C 70 18 107/71 93 02/12/21 07:17 18 95 02/12/21 00:31 74 18 93 Laboratory Results Short CBC 02/12/21 Range/Units 05:46 WBC 10.91 H (4.8-10.8) K/uL Hgb 11.4 L (12.0-16.0) g/dL Hct 34.9 L (37-47) % Plt Count 420 H (130-400) K/uL BMP 02/12/21 05:46 Sodium 141 Potassium 3.8 Chloride 106 Carbon Dioxide 31 BUN 18 Creatinine 0.78 Glucose 99 Calcium 8.7 Liver Function 02/12/21 Range/Units 05:46 Total Bilirubin 0.4 (0.2-1) mg/dl AST 18 (15-37) U/L ALT 75 (12-78) U/L Alkaline Phosphatase 66 (45-117) U/L Albumin 2.6 L (3.4-5.0) gm/dl
--- NOTE | 2021-02-14 08:18 | Discharge Summary ---
Date of Service February 14, 2021 Admission HPI Per Admitting Provider This is a 40y F with a PMH of anxiety/depression, pre-DM, asthma, JEWEL using CPAP who presented to the [facility] ED on 02/08/20 with complaints of abdominal pain. Patient reports the pain woke her up at 4am this morning from her sleep. She describes the pain as sharp, rating it an 8-9/10 in severity, located in upper abdomen radiating off to the right side. She says she "felt like my stomach was going to burst." She also felt like she was constipated, but was able to pass 3 normal BM's this morning. She endorses + nausea without vomiting. Due to her pain she came to the ER for further evaluation. In the ER a CT a/p was performed that showed mild hyperemia of the slightly thickened gallbladder wall with pericholecystic edema. Follow up with a RUQ US showed cholelithiasis and gallbladder sludge with mild gallbladder wall thickening and pericholecystic fluid is suspicious for acute cholecystitis. No biliary ductal dilation. Patient says she never had an episode of pain similar to this before. She ate mac and cheese and a sandwich for dinner last evening. She denies having issues with eating fatty/greasy/spicy foods in the past. She denies fevers/chills, back pain, CP/SOB, or diarrhea. Her prior abdominal surgical history includes a hysterectomy. Principal Diagnosis Acute cholecystitis Obstructive sleep apnea Atelectasis Discharge Exam Constitutional WD/WN, vitals as above Gastrointestinal (Abdomen) Inspection/Auscultation: + abdominal surgical incision (clean, dry) Percussion/Palpation: abdomen soft Discharge Data Allergies Allergy/AdvReac Type Severity Reaction Status Date / Time Penicillins Allergy Severe hives,difficulty Verified 02/07/21 08:39 breathing ceftriaxone Allergy Mild Rash Verified 02/12/21 11:45 Consultations 02/07/21 12:26 ED Decision to Admit Stat 02/10/21 10:44 Consult Internal Medicine Routine Procedures Performed Operation Date: 02/07/21 14:05 Actual Procedures p Laparoscopic Cholecystectomy - Bryan Tran, DO, FACS Ordered Studies 02/07/21 08:01 CT abd pelvis IV con only Stat 02/07/21 11:07 US gallbladder Stat 02/10/21 12:46 CT angio chest PE protocol Urgent Hospital Course (1) Acute calculous cholecystitis: 40 y/o female presented to the ER with abdominal pain. Labs, CT and ultrasound were consistent with acute cholecystitis. She was taken to the operating room for laparoscopic cholecystectomy and transferred to the surgical floor for observation. She was slow to mobilize and had issues with pain control. She then had low saturation levels, hospitalist service was consulted. CXR and CT showed atelectasis without any evidence of PE. On POD 5 she was tolerating diet and tolerate oral analgesics and maintaining O2 sats. She was stable for discharge home. Total Time Total Time Spent Total Time Spent (In Minutes): 15 Discharge Plan Discharge Items Patient Disposition: Home - Self-Care Reason For Visit: RT SIDED ABD PAIN INTO MIDDLE BELLY Discharge Diagnosis: laparoscopic cholecystectomy Activity: Per Instructions section Lifting: No more than 10 pounds Bathing Comment: may shower; no soaking in tubs/pools Exercise/Sports: Wait until after follow-up appointment Driving/Machine Use: wait at least 3 days; no driving while taking narcotics for pain Non-emergency contact: Surgeon Call non-emergency contact if: you have any medication questions, your symptoms worsen, your pain is not controlled, your pain is worsening, your pain is concerning for you, you have a fever, your temperature is above 101.5, your wou nd has increased redness, your wound has increased drainage and your wound pain has increased Follow-up/Referrals: Bryan Tran DO, FUNMILAYO [Physician] - 02/20/21 9:15 am (Please call to schedule follow up in clinic within 1-2 weeks) Montserrat Hernández DO [Primary Care Provider] - 02/14/21 11:10 am (Date & Time 02/14/2021 11:10 AM Provider Montserrat Hernández DO Department [facility] ) Diet: Regular Addtl Attending Provider Instructions: You may purchase Tylenol and/or Ibuprofen over the counter if needed for additional pain control. - Tylenol 650mg orally every 4-6 hours, as needed for pain. Do not exceed >3grams of Acetaminophen within a 24 hour time period. - Ibuprofen 400mg-600mg orally every 6-8 hours, as needed for pain. Take with food. You have been prescribed two more doses of prednisone for the rash you experienced while in the hospital to take. Pending Studies at Discharge: Yes Studies:: surgical pathology Stand-Alone Forms: My [facility] [address], Opioid Pain Management, Smoking Cessation Medications and DC Order Prescriptions: New oxycodone 5 mg tablet 5 - 10 mg PO .[id number] PRN (Reason: pain, for initial therapy, max 6 tabs per day) Qty: 15 RF: 0 prednisone 10 mg tablet 10 mg PO DAILY Qty: 2 RF: 0 Continued quetiapine 100 mg tablet 100 mg PO HS RF: 0 montelukast 10 mg tablet 10 mg PO QPM RF: 0 albuterol sulfate 90 mcg/actuation HFA aerosol inhaler 2 puff inhalation Q4H PRN (Reason: Shortness Of Breath Or Wheezing) RF: 0 fluticasone propionate 50 mcg/actuation spray,suspension 1 spray intranasal BID RF: 0 buspirone 15 mg tablet 15 mg PO TID RF: 0 hydroxyzine pamoate 25 mg capsule 25 mg PO TID PRN (Reason: Anxiety) RF: 0 escitalopram oxalate 5 mg tablet 5 mg PO QAM RF: 0 fenofibrate nanocrystallized 145 mg tablet 145 mg PO QAM RF: 0 fluticasone propion-salmeterol 250-50 mcg/dose blister with device 1 inh INHALATION BID RF: 0 metformin 500 mg tablet extended release 24 hr 500 mg PO PM RF: 0 escitalopram oxalate 10 mg tablet 10 mg PO QAM RF: 0 naproxen 500 mg tablet 500 mg PO BID PRN (Reason: pain) Qty: 20 RF: 0 losartan 25 mg tablet 12.5 mg PO QAM RF: 0 ondansetron HCl [Zofran] 4 mg tablet 4 mg PO Q6H PRN (Reason: nausea and vomiting) Qty: 20 RF: 0 Discharge Orders: Discharge Order (Routine); Ordered 02/12/21 Ordered By: Leyla Henning/Other Patient Handouts: DVT Post Op Prevention Admission Data Admit Date/Time: 02/11/21 16:31 Attending Provider: Bryan Tran Admit Provider: Bryan Tran Primary Care Provider: Montserrat Hernández Other Providers: Bryan Tran ; Marina Iqbal ; Aida Alcantar ; Mei Marsh ; Louie Shell ; Mervat Altamirano ; Eula Valera ; Cassia Jorgensen ; Julisa Blas ; Navin Bennett ; Adrian Green ; Reece Morales ; Bambi Mitchell ; Tiffany Eid ; Sanju Kennedy ; Reena Finch ; Lindsay Deal ; Vincent Mcintosh ; Sharifa Finley ; Sasha Cedillo ; Lane Galindo ; Elida Stevens I. ; Naun Ahmadi Other Interventions: Discharge Summary Assessment (RN) Last Done: 02/12/21 14:31 Coding Level of Care Code D/C Day Management <30 mins Diagnoses Acute calculous cholecystitis K80.00
== END 2021-02-12 15:49 | disposition home or self-care (01) | DRG 417 ==
LOC: ED 07:42 → 3N 14:31 → ASU 14:31 → 3N 02-10 21:41

== ENCOUNTER 2023-07-10 10:21 | Observation (INO) ==
--- NOTE | 2023-06-24 10:37 | PAT Medication Instructions ---
Medication Instructions Date of Service June 24, 2023 Home Medications albuterol sulfate 90 mcg/actuation aerosol inhaler 2 puff inhalation Q4H PRN fenofibrate nanocrystallized 145 mg tablet 145 mg PO QAM fluticasone propionate 50 mcg/actuation nasal spray,suspension 1 spray intranasa l BID montelukast 10 mg tablet 10 mg PO QPM fluticasone 250 mcg-salmeterol 50 mcg/dose blistr powdr for inhalation 1 inh inhalation AMHS metformin 500 mg tablet,extended release 24 hr 1,000 mg PO QAM losartan 25 mg tablet 12.5 mg PO QAM albuterol sulfate 2.5 mg/3 mL (0.083 %) solution for nebulization 2.5 mg continuous nebulization Q4 PRN tiotropium bromide 18 mcg capsule with inhalation device (Spiriva with HandiHaler) 1 cap inhalation QAM escitalopram oxalate 20 mg tablet (Lexapro) 20 mg PO QAM atorvastatin 10 mg tablet 10 mg PO QAM buspirone 30 mg tablet 30 mg PO BID doxycycline hyclate 100 mg capsule 100 mg PO AMHS omeprazole 20 mg capsule,delayed release 20 mg PO DAILY brexpiprazole 1 mg tablet (Rexulti) 1.5 mg PO QAM trazodone 50 mg tablet 50 mg PO HS Check with prescriber brexpiprazole 1 mg tablet (Rexulti) 1.5 mg PO QAM Continue as directed omeprazole 20 mg capsule,delayed release 20 mg PO DAILY STOP taking 48 hours before surgery fenofibrate nanocrystallized 145 mg tablet 145 mg PO QAM DO NOT take the morning of surgery metformin 500 mg tablet,extended release 24 hr 1,000 mg PO QAM losartan 25 mg tablet 12.5 mg PO QAM Take morning of surgery With a small sip of water, OTHERWISE NOTHING TO EAT OR DRINK AFTER MIDNIGHT: albuterol sulfate 90 mcg/actuation aerosol inhaler 2 puff inhalation Q4H PRN(use if needed; please bring with you to hospital day of surgery if possible) fluticasone propionate 50 mcg/actuation nasal spray,suspension 1 spray intranasal BID fluticasone 250 mcg-salmeterol 50 mcg/dose blistr powdr for inhalation 1 inh inhalation AMHS albuterol sulfate 2.5 mg/3 mL (0.083 %) solution for nebulization 2.5 mg continuous nebulization Q4 PRN(if needed) tiotropium bromide 18 mcg capsule with inhalation device (Spiriva with HandiHaler) 1 cap inhalation QAM escitalopram oxalate 20 mg tablet (Lexapro) 20 mg PO QAM atorvastatin 10 mg tablet 10 mg PO QAM buspirone 30 mg tablet 30 mg PO BID doxycycline hyclate 100 mg capsule 100 mg PO AMHS Take evening before surgery albuterol sulfate 90 mcg/actuation aerosol inhaler 2 puff inhalation Q4H PRN(if needed) fluticasone propionate 50 mcg/actuation nasal spray,suspension 1 spray intranasal BID montelukast 10 mg tablet 10 mg PO QPM fluticasone 250 mcg-salmeterol 50 mcg/dose blistr powdr for inhalation 1 inh inhalation AMHS albuterol sulfate 2.5 mg/3 mL (0.083 %) solution for nebulization 2.5 mg continuous nebulization Q4 PRN(if needed) buspirone 30 mg tablet 30 mg PO BID doxycycline hyclate 100 mg capsule 100 mg PO AMHS trazodone 50 mg tablet 50 mg PO HS Other Notes If you have any questions please call us at [phone] or [phone] or [phone] or [phone]
--- NOTE | 2023-06-26 11:48 | Anesthesiology Consultation ---
Date of Service June 26, 2023 Assessment & Plan (1) Encounter for pre-operative examination: Chart Review Chart Review: Acceptable Risk for Surgery (pending final PCP clearance at main OR ) and Patient seen in Pre Admission Testing - Awaiting final PCP clearance 06/18/23 ([facility])- PCP awaiting preop testing- please fax - Check BSG AM DOS - Discussed case with Dr. Madrigal- due to BMI- recommended patient be done at main OR. Patient and surgeons' office informed Right hemidiaphragmatic elevation on 06/26/23 CXR- patient for left shoulder arthroscopy Per PAT appt on 06/26/23, no recent illness/disease exposures, illness related symptoms, or recent illness/disease positive tests. Will leave to surgeon's discretion if preop Covid testing needed Teaching & Discussion Pre-Anesthesia Teaching/Discussion Notes: Instructed NPO after midnight before surgery,except medications with 15 cc of water. Medication instructions provided according to the PAT guidelines. History Surgery Operation Date: 07/07/23 11:00 Proposed Procedures p Left Shoulder Arthroscopy, Massive Rotator Cuff Repair, Biceps Tenotomy, Subacromial Decompression(Left) - Chaz Solomon MD Operation Date: 07/10/23 09:10 Proposed Procedures p Left Shoulder Arthroscopy, Massive Rotator Cuff Repair, Biceps Tenotomy, Subacromial Decompression - Chaz Solomon MD Pt scheduled for 07/10/23 left shoulder arthroscopy, massive RCR, Biceps Tenotomy, Subacromial Decompression (07/07/23 procedure at [place] canceled) Height/Weight Height: 5 ft 5.5 in Weight: 136.4 kg Allergies Allergy/AdvReac Type Severity Reaction Status Date / Time Penicillins Allergy Severe hives,difficulty Verified 06/24/23 09:55 breathing ceftriaxone Allergy Mild Rash Verified 06/24/23 09:55 Medications Home Medications Medication Instructions Recorded Confirmed Last Taken albuterol sulfate 90 mcg/actuation 2 puff inhalation Q4H PRN 04/01/19 06/24/23 03/31/19 aerosol inhaler Shortness Of Breath Or Wheezing fenofibrate nanocrystallized 145 145 mg PO QAM 04/01/19 06/24/23 02/28/22 mg tablet fluticasone propionate 50 1 spray intranasal BID 04/01/19 06/24/23 02/28/22 mcg/actuation nasal spray,suspension montelukast 10 mg tablet 10 mg PO QPM 04/01/19 06/24/23 02/28/22 fluticasone 250 mcg-salmeterol 50 1 inh inhalation AMHS 07/22/20 06/24/23 02/28/22 mcg/dose blistr powdr for inhalation metformin 500 mg tablet,extended 1,000 mg PO QAM 07/22/20 06/24/23 02/28/22 release 24 hr losartan 25 mg tablet 12.5 mg PO QAM 10/19/20 06/24/23 02/28/22 albuterol sulfate 2.5 mg/3 mL 2.5 mg continuous nebulization Q4 06/27/21 06/24/23 Unknown (0.083 %) solution for nebulization PRN Shortness Of Breath Or Wheezing tiotropium bromide 18 mcg capsule 1 cap inhalation QAM 06/27/21 06/24/23 02/28/22 with inhalation device (Spiriva with HandiHaler) escitalopram oxalate 20 mg tablet 20 mg PO QAM 02/28/22 06/24/23 02/28/22 (Lexapro) atorvastatin 10 mg tablet 10 mg PO QAM 08/08/22 06/24/23 Unknown buspirone 30 mg tablet 30 mg PO BID 08/08/22 06/24/23 Unknown omeprazole 20 mg capsule,delayed 20 mg PO DAILYBB 08/08/22 06/24/23 Unknown release brexpiprazole 1 mg tablet (Rexulti) 1.5 mg PO QAM 06/24/23 06/24/23 Unknown trazodone 50 mg tablet 50 mg PO HS 06/24/23 06/24/23 Unknown Past Medical History Medical History (Updated 06/26/23 @ 12:05 by Nishi Rosen PA-C) Anxiety Asthma Well controlled - rare albuterol use Condyloma acuminata 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 COPD (chronic obstructive pulmonary disease) Stable Depression Fatty liver No issues with LFTS GERD (gastroesophageal reflux disease) well controlled and stable History of kidney stones no recent issues History of pneumonia post op lap cholecystectomy 2020 Hyperinsulinemia Hyperlipemia JEWEL on CPAP Prediabetes Type II diabetes per PCP records Hgb A1C was 6.3 on 05/19/23 Recurrent sinus infections No current issues Urge and stress incontinence Exercise / Class Metabolic Activity II 4-5 Yardwork/Stairs/Walk up hill (one flight of stairs - no chest pain or SOB ) Past Family History Family History Father Depression History of anesthesia complications hx aspiration Mother Depression Uncle Colorectal cancer maternal Denies family history of Ovarian cancer Breast cancer Past Surgical History Surgical History H/O sinus surgery H/O tubal ligation H/O wisdom tooth extraction History of cystoscopy w/ stent placement History of removal of ureteral stent Hx of tonsillectomy S/P laparoscopic cholecystectomy (02/07/21) Laparoscopic Cholecystectomy - Bryan Tran, , FACS 02/07/21 S/P partial hysterectomy "Ovaries intact " Status post hysteroscopic ablation of endometrium Past Anesthesia History No Hx of Anesthesia Complications (with exception to remote history of pneumonia post op 2020) and No Family Hx of Anesthesia Complications (with exception to father - had episode of aspiration ) History of PONV No Hx of PONV and No Hx of Motion Sickness Social History Smoking Status: Current every day smoker tobacco type: cigarettes Smoking cigarettes per day: 10 cigs/day Do You Dip or Chew Tobacco: No Hx Alcohol Use: No Hx Substance Use: No Review of Systems Patient denies chest pain, shortness of breath, dyspnea on exertion, cough, wheezing, palpitations. No hx of seizures, stroke, [place]. No hx of blood clots or blood transfusions Physical Exam Vital Signs VITALS BP 111/72 P 85 TEMP 97.9 SP02 97% RESP 16 Constitutional no acute distress ENMT Mouth: no TMJ clicking Thyromental Distance: > or= 3.5 Finger Breadths (3.5) Mallampati Class: I Full denture on top, partial denture on bottom Neck + short neck, + thick neck and + limited neck extension (minimal) Respiratory normal respiratory effort; no respiratory distress Auscultation: lungs clear to auscultation bilaterally and + diminished lung sounds; no wheezes Cardiovascular Rate/Rhythm: regular rate and regular rhythm Heart Sounds: no murmur Vessels: no carotid bruit Musculoskeletal Spine: + pain with cervical ROM (mild) Extremities: extremities normal to inspection Psychiatric Orientation: alert Lab Results Anesthesia Preop Results Results Anesthesia Widget: WBC 10.03 K/ul (4.8-10.8) 06/26/23 Hgb 13.6 g/dl (12.0-16.0) 06/26/23 Hct 40.5 % (37.0-47.0) 06/26/23 Plt 446 K/uL (130-400) H 06/26/23 Na 139 mmol/L (136-145) 06/26/23 K 3.6 mmol/L (3.5-5.1) 06/26/23 Cl 106 mmol/L (98-107) 06/26/23 CO2 27 mmol/L (21-32) 06/26/23 BUN 11 mg/dl (6-23) 06/26/23 Creat 0.82 mg/dl (0.6-1.2) 06/26/23 Glucose Level 165 mg/dl (70-99(Fasting)) H 06/26/23 PT 10.9 Seconds (9.0-12.0) 06/26/23 PTT 24.4 Seconds (21.0-31.0) 06/26/23 INR 1.0 (0.9-1.1) 06/26/23 Testing Laboratory Results 05/19/23= HGB A1C: 6.3 Electrocardiogram Date: 06/26/23 Findings: + NSR @ (78bpm ) Normal EKG per cardio Chest X-Ray Date: 06/26/23 Findings: + NAD FINDINGS: Cardiac mediastinal and hilar silhouettes are within normal limits. No pneumothorax, pleural effusion, airspace consolidation or pulmonary edema. Unchanged right hemidiaphragmatic elevation. Bones appear grossly intact. Echocardiogram Date: 03/15/20 EF: 50-54% LV Function: normal RWMA: + none Other Findings: + LVH (mild/concentric ) Valvular Disease: + no significant valvular disease
[~2023-07-10 10:21] MED LIST changes: +BUPIVACAINE 0.5 % 5 MG/1 ML PF 10ML VIAL ONE; -CLINDAMYCIN 900 MG in DEXTROSE 5% 50 ML IV SCH; +CLINDAMYCIN/D5W 900 MG/50 ML BAG IV SCH; +LACTATED RINGER'S 1,000 ML IV SCH; +LR 15ML/HR IV SCH; +TRANEXAMIC ACID / 0.7% NACL 1000MG/100ML BAG IV SCH
[2023-07-10] MEDS ORDERED: fentaNYL citrate PF 100 MCG/2 ML VIAL ONE ×2 (10:52→14:29)
[2023-07-10] MEDS ORDERED: LIDOCAINE 2% 2 ML VIAL/AMP(20MG/ML) INFIL ONE (10:52)
[2023-07-10] MEDS ORDERED: ONDANSETRON INJ 2 MG/ML 2 ML VIAL ONE (10:52)
[2023-07-10] MEDS ORDERED: MIDAZOLAM HCL 1 MG/ML 2ML VIAL ONE (10:52)
[2023-07-10] MEDS ORDERED: PROPOFOL IV EMULSION 10 MG/ML 20 ML VIAL IV ONE (10:52)
[2023-07-10] MEDS ORDERED: DEXAMETHASONE SOD INJ 4 MG/ML VIAL ONE (10:52)
[2023-07-10] MEDS ORDERED: ONDANSETRON INJ 2 MG/ML 2 ML VIAL IV PRN ×2 (12:01→16:18)
[2023-07-10] MEDS ORDERED: ATROPINE SULFATE 0.1 MG/ML 10ML SYR IV PRN (12:01)
[2023-07-10] MEDS ORDERED: ePHEDrine sulfate 50 MG/ML AMP IV PRN (12:01)
[2023-07-10] MEDS ORDERED: PROMETHAZINE HCL 6.25 MG in SODIUM CHLORIDE 0.9% 50 ML IV PRN (12:01)
--- NOTE | 2023-07-10 12:57 | History & Physical Bridge Note ---
Date of Service July 10, 2023 History & Physical Bridge Note I have examined the patient, reviewed the History & Physical and in the interval since the performance of the History & Physical I have noted the following changes of clinical significance: no changes noted
[2023-07-10] MEDS ORDERED: DexMEDEtomidine HCL IV 100 MCG/ML VIAL IV ONE (13:15)
[2023-07-10] MEDS ORDERED: ACETAMINOPHEN 1000 MG/100 ML IV IV ONE (13:15)
[2023-07-10] MEDS ORDERED: EPINEPHrine HCL INJ 1 MG/ML 30ML ONE (13:23)
[2023-07-10] MEDS ORDERED: LIDOCAINE 1%/EPINEPHRINE 1:100,000 20 ML VIAL ONE (13:23)
[2023-07-10] MEDS ORDERED: BUPIVACAINE/EPINEPHRINE 0.5% MPF 1:200,000 30 ML VIAL ONE (13:34)
[2023-07-10] MEDS ORDERED: ALBUTEROL HFA 8 GM INHALER INH ONE (14:10)
[2023-07-10] MEDS ORDERED: SUCCINYLCHOLINE 100MG/5ML SYR IV ONE (14:10)
[2023-07-10] MEDS ORDERED: ROCURONIUM BROMIDE 10 MG/ML 5 ML VIAL IV ONE ×2 (14:22→14:23)
[2023-07-10] MEDS ORDERED: KETAMINE 50 MG/5 ML SYRINGE ONE (14:53)
[2023-07-10] MEDS ORDERED: SUGAMMADEX SODIUM 200 MG/2 ML VIAL IV ONE (15:33)
[2023-07-10] MEDS ORDERED: KETOROLAC 30 MG/ML VIAL ONE (16:03)
--- NOTE | 2023-07-10 16:11 | Operative Report ---
Post Operative Report Pre & Post Diagnosis Operation Date: 07/10/23 12:00 Pre-Op Diagnosis: Left Shoulder Massive Rotator Cuff Tear, Biceps Tendonitis, Subacromial impingement and subcoracoid impingement Post-Op Diagnosis: Left Shoulder Massive Rotator Cuff Tear (subscapularis, supraspinatus, and infraspinatus), Biceps Tendonitis, Subacromial impingement and subcoracoid impingement. A 22 modifier should be added to the case secondary to the patient's elevated body mass index of 49. This caused increased difficulty with the case due to inability to palpate normal anatomic landmarks as well as difficulty with positioning maneuvering the instruments, and increased risk for complications. I identified the patient and participated in the time-out.: Yes Procedure Operation Date: 07/10/23 12:00 Actual Procedures p Left Shoulder Arthroscopy, Massive Rotator Cuff Repair of subscapularis, supraspinatus, and infraspinatus, Biceps Tenotomy, Subacromial Decompression, coracoid plasty(Left) - Chaz Solomon MD Surgeon Chaz Solomon MD Stitch Marker DONNA Brown PA-C. No resident or fellow was available to assist. Estimated Blood Loss 25 Findings Consistent with Post-Op Diagnosis Specimens None Anesthesia Type General Complications none Disposition Disposition: Recovery Room Indications 42-year-old female, took a fall back in April of this year. Has been unable to raise her arm since that time. Physical exam was notable for weakness in rotator cuff testing. Positive empty can test. Positive Neer and Dixon test. MRI was obtained demonstrating tears of the subscapularis, supraspinatus, and infraspinatus as well as subluxation of the long head of the biceps out of the groove. She was also noted to have subacromial and subcoracoid impingement. I had a long discussion with the patient about her diagnosis, risks and benefits of surgery, alternatives, and expected outcomes. After reviewing all these she elected to proceed with surgery. All questions were answered. Informed consent was signed. Description of Procedure Patient was identified in the preoperative holding area where her cervix site was marked. She was unable to receive a interscalene block as a result of hemidiaphragm paralysis on the nonoperative side. She was therefore brought to the main operating room where she was moved onto the operating room table and general anesthesia was administered. She was then carefully moved in the lateral decubitus position. Axillary roll was placed. All bony promises were padded. Perioperative antibiotics were administered. She was prepped and draped in the usual sterile fashion. Prior to incision a multidisciplinary timeout was called. All in the room were in agreement. I began by marking out her anatomic landmarks on the skin. These were difficult to palpate due to patient's subcutaneous tissues. Posterior viewing portal was then created. Diagnostic arthroscopy was then performed revealing the below findings: 1. The upper border the subscapularis was torn and retracted close to the level of the glenoid. 2. The long head of biceps was subluxated out of the groove into the subscapularis insertion. 3. The supraspinatus and anterior one half of the infraspinatus were torn. 4. Teres minor was intact. 5. Axillary pouch was normal. 6. The glenoid articular cartilage was normal. 7. The labrum was normal. 8. The humeral head articular cartilage was normal. Having completed our diagnostic arthroscopy we then started the subscapularis repair. An anterior superolateral portal was created under spinal needle localization. A 8.25 mm Arthrex cannula was introduced. Through this cannula we used a upbiter to tenotomized the long head of the biceps off its insertion onto the superior labrum. The biceps retracted out of the joint nicely. I then was able to grasp the upper border the subscapularis and reduce it towards the footprint. The comma tissue was identified. Electrocautery was used to make a capsular window medial to the comma tissue and expose the coracoid. There is a posterior bony prominence of the coracoid and therefore coracoid plasty was indicated. The arthroscopic bur was used to resect approximately 4 mm of the posterior aspect of the coracoid so there was over 7 mm between the coracoid and the underlying subscapularis tendon. Next, the footprint of the subscapularis was debrided with the arthroscopic bur. I did medialize this footprint about 5 mm to assist in additional healing factors. A 6 mm cannula was then placed for our anterior working portal. A fiber tape was then passed using the scorpion through the upper border the subscapularis. This was brought out through the anterior portal. It was threaded through a swivel lock anchor. We punched for the swivel lock and then placed the anchor without difficulty. Excellent fixation and footprint coverage was obtained. the arm was internally and externally rotated and we were happy with the stability of our repair. Next, the arthroscope was moved into the subacromial space. The patient had a significant amount of subacromial bursitis. A lateral working portal was created and was used to resect the subacromial bursitis and expose the underlying rotator cuff tendon tear. The undersurface the acromion was then exposed with electrocautery. She had a large anterior cysts subacromial spur. Arthroscopic bur was used to resect the spur converting her from a type II to a type I acromion. Once this was complete the rotator cuff grasper was placed through the anterior superolateral portal and we were able to reduce the tendon onto the footprint by pulling the tendon predominantly anteriorly. Soft tissue on the rotator cuff footprint was then debrided with electrocautery and the bur was used to create a bleeding surface for healing. I then placed 2 Arthrex 4.75 swivel lock anchors along the medial row. Each of these sutures was passed with the scorpion. Once the sutures were passed the 6 wedges were cut and 1 tape from each medial row anchor was brought out through the lateral portal. First anchor was placed anteriorly for a lateral row. Excellent fixation was obtained. Second anchor was then placed laterally more but more posteriorly. Again excellent fixation was obtained. At this point we noted that there was a small dog ear between in the subscapularis and the supra spinatus likely rotator interval and rotator cable tissue. The sutures from her anterior lateral anchor were then passed in a horizontal mattress fashion through this dogear and tied down. Again excellent fixation was obtained. This point we inspected our final repair. I was happy with the footprint coverage. The repair was not under undue tension. Final arthroscopic images were obtained. a spinal needle was placed in the subacromial space under direct visualization through a separate skin location. Instruments were removed from the shoulder. Portal sites were closed with 3-0 Monocryl suture in buried interrupted fashion. once all of her sutures were in place 30 cc of half percent Marcaine was injected in the subacromial space through the spinal needle for postoperative pain control. Spinal needle was removed. Sterile dressings were applied. Patient was then awoke from anesthesia and transferred to the recovery room in stable condition. Postoperative course: Patient will be admitted overnight for pain control and monitoring. Likely discharge home tomorrow. She will be in a sling for the next 6 weeks. She will follow the massive rotator cuff repair protocol. A spirin for DVT prophylaxis. I attest to the content of the Intraoperative Record and any orders documented therein. Any exceptions are noted below.
[2023-07-10] MEDS ORDERED: diphenhydrAMINE Capsule 25 MG CAP PO PRN (16:18)
[2023-07-10] MEDS ORDERED: ALUMINUM/MAGNESIUM SUSP 30 ML UDC PO PRN (16:18)
[2023-07-10] MEDS ORDERED: ACETAMINOPHEN 325 MG TAB PO PRN (16:18)
--- NOTE | 2023-07-10 16:18 | Operative Report ---
Post Operative Report Pre & Post Diagnosis Operation Date: 07/10/23 12:00 Pre-Op Diagnosis: Left Shoulder Rotator Cuff Tear, Biceps Tendonitis Post-Op Diagnosis: Left Shoulder Rotator Cuff Tear, Biceps Tendonitis I identified the patient and participated in the time-out.: Yes Procedure Operation Date: 07/10/23 12:00 Actual Procedures p Left Shoulder Arthroscopy, Massive Rotator Cuff Repair Supraspinatus and Infraspinatus, Biceps Tenotomy, Subacromial Decompression, Coracoplasty (Left) - Chaz Solomon MD Surgeon Chaz Solomon MD Wheel And Caster Repairer DONNA Brown PA-C. No resident or fellow was available to assist. Estimated Blood Loss 25 Findings Consistent with Post-Op Diagnosis Specimens none Description of Procedure I was present during the entire case assisting with positioning, prepping, draping, wound retraction, wound closure, dressing and sling application. No fellow present. Please see Dr. Solomon procedure note for specifics of the case. I attest to the content of the Intraoperative Record and any orders documented therein. Any exceptions are noted below.
[2023-07-10] MEDS ORDERED: ALBUTEROL 0.083% NEBU SOLN 3 ML VIAL INH PRN (16:22)
[2023-07-10] MEDS ORDERED: ALBUTEROL HFA 8 GM INHALER INH PRN (16:22)
[2023-07-10] MEDS ORDERED: ALBUT/IPRATROP 3MG/0.5MG NEB 3 ML VIAL INH PRN (16:42)
[2023-07-10] MEDS ORDERED: ALBUT/IPRATROP 3MG/0.5MG NEB 3 ML VIAL ONE (16:43)
[2023-07-10] MEDS: fentaNYL citrate PF 100 MCG/2 ML VIAL IV PRN ×4 (17:18→17:33)
[2023-07-10] MEDS ORDERED: HYDROmorphone INJ 1 MG/ML SYRINGE IV PRN (17:39)
[2023-07-10] MEDS ORDERED: HYDROmorphone INJ 0.5 MG/0.5 ML SYR ONE (17:40)
--- NOTE | 2023-07-10 17:42 | Anesthesiology Progress Note ---
Date of Service July 10, 2023 Anesthesia Post Procedure Vital Signs Vital Signs: Temp Pulse Pulse Resp BP Pulse Ox O2 Del Method 07/10/23 17:30 70 14 117/82 93 Oxymask 07/10/23 17:20 72 16 132/98 94 Oxymask 07/10/23 17:10 71 20 116/74 95 Oxymask 07/10/23 16:50 71 20 133/89 92 Oxymask 07/10/23 17:00 67 20 126/92 93 Oxymask 07/10/23 16:40 75 19 144/73 H 92 Oxymask 07/10/23 16:30 74 20 135/80 91 Oxymask 07/10/23 16:28 36.1 C L 82 18 138/84 88 L Oxymask 07/10/23 10:56 36.4 C L 68 18 118/69 96 Room Air O2 Flow Rate 07/10/23 17:30 2 07/10/23 17:20 4 07/10/23 17:10 6 07/10/23 16:50 8 07/10/23 17:00 6 07/10/23 16:40 15 07/10/23 16:30 15 07/10/23 16:28 15 07/10/23 10:56 Pain Intensity Left Shoulder: Pain Intensity: 8 Transfer of Care Handoff Completed per policy Notes Mental Status: alert / awake / arousable and participated in evaluation Patient Amnestic to Procedure: Yes Nausea / Vomiting: adequately controlled Pain: adequately controlled and improving with treatment Airway Patency, RR, SpO2: see Notes below BP & HR: stable & adequate Hydration State: stable & adequate Anesthetic Complications: no major complications apparent and Pt Satisfied with anesthetic care Notes: Patient was unable to get peripheral nerve block due to left sided surgery and right sided hemidiaphragm elevation (see my previous notes). Decision made by fidel billings surgical team to keep her overnight for closer monitoring given that she will need more pain medications than previously thought. She will be placed on cont pulse oximetry and will order CPAP overnight for her (she has CPAP at home but did not bring it as she thought she was going to be an outpatient). Patient agreeable to plan and all questions answered.
[2023-07-10] MEDS: ASPIRIN 81 MG ECTAB PO SCH (20:25)
[2023-07-10] MEDS: FLUTICASONE PROPIONATE NA SPR 16 GM BTL SCH (20:25)
[2023-07-10] MEDS: busPIRone 15 MG TAB PO SCH (20:26)
[2023-07-10] MEDS: oxyCODONE/ACETAMINOPHEN 5mg/325mg TAB PO PRN (20:26)
[2023-07-10] MEDS ORDERED: traZODone HCL 50 MG TAB PO SCH (21:00)
[2023-07-10] MEDS ORDERED: MONTELUKAST SODIUM 10 MG TABLET PO SCH (21:00)
[2023-07-10] MEDS: FLUTICASONE/VILANTEROL 200/25MCG 14 PUFFS/INHALER INH SCH (21:18)
[2023-07-11] MEDS: oxyCODONE/ACETAMINOPHEN 5mg/325mg TAB PO PRN ×2 (05:31→10:28)
[2023-07-11] MEDS ORDERED: PANTOprazole 40 MG TAB PO SCH (06:30)
[2023-07-11] MEDS: FLUTICASONE/VILANTEROL 200/25MCG 14 PUFFS/INHALER INH SCH (08:25)
[2023-07-11] MEDS: FLUTICASONE PROPIONATE NA SPR 16 GM BTL SCH (08:26)
[2023-07-11] MEDS: ASPIRIN 81 MG ECTAB PO SCH (08:26)
[2023-07-11] MEDS: busPIRone 15 MG TAB PO SCH (08:26)
[2023-07-11] MEDS ORDERED: UMECLIDINIUM BROMIDE 62.5MCG/BLISTER 7 PUFFS/INHALER INH SCH (09:00)
[2023-07-11] MEDS ORDERED: FENOFIBRATE NANOCRYSTALLIZED 145 MG TABLET PO SCH (09:00)
[2023-07-11] MEDS ORDERED: ATORVASTATIN 10 MG TAB PO SCH (09:00)
[2023-07-11] MEDS ORDERED: LOSARTAN POTASSIUM 25 MG TAB PO SCH (09:00)
[2023-07-11] MEDS ORDERED: metFORMIN HCL ER 500 MG TABCR PO SCH (09:00)
[2023-07-11] MEDS ORDERED: ESCITALOPRAM OXALATE 20 MG TAB PO SCH (09:00)
--- NOTE | 2023-07-11 09:05 | Orthopedic Progress Note ---
Date of Service July 11, 2023 Assessment & Plan (1) S/P left rotator cuff repair: Plan: PT/OT this morning Pain control with p.o. medication that the patient already has DVT prophylaxis with baby aspirin and SUJIT stockings Ice with easy wrap Pillow sling use x6 weeks Keep dressings in place May remove sling for bathing purposes and range of motion exercises involving her elbow hand wrist and fingers Begin outpatient physical therapy next Friday in our clinic as scheduled Follow-up at [facility] orthopedics as previously scheduled With questions contact our clinic at [phone] Admission and Anticipated Discharge Date Admission Date: July 10, 2023 Subjective This 42-year-old female was seen today day 1 status post left shoulder massive rotator cuff repair. Patient was admitted for observation after the procedure yesterday for pain control. She states she is doing very well. She states that her pain is well controlled with the oxycodone she was given. Patient states that the sling feels very comfortable. She states that she did have her initial physical therapy appointment scheduled for today however had to cancel has not set to start until next Friday in our clinic. Currently she denies chest pain, shortness of breath, fever, chills, sweats, numbness or tingling in her left upper extremity. She also denies nausea, vomiting, diarrhea or difficulty voiding. She is anxious to be discharged home. Review of Systems Review of Systems: All systems reviewed & are unremarkable except as noted in Subjective Physical Exam Physical Exam: Left shoulder: Surgical port sites are closed completely with Steri-Strips, 2 x 2's and T[address]erms in place. There is no significant saturation. Patient is able to detect light sensation to touch over the pads of all digits. She has full range of motion of her fingers hand and wrist. I did not test range of motion in her elbow or shoulder I kept her sling in place. Her peripheral pulses were 2+. Her capillary refill was less than 2 seconds. She was neurovascularly intact in the left upper extremity. Results & Data Vital Signs (Past 12 Hours) Vital Signs Temp Pulse Pulse Resp BP Pulse Ox O2 Del Method 07/11/23 08:10 Room Air 07/11/23 08:15 36.8 C 75 18 137/84 92 Room Air 07/11/23 04:34 37.0 C 73 19 145/87 H 98 CPAP 07/11/23 02:14 78 14 97 07/11/23 00:50 36.7 C 90 20 156/84 H 94 CPAP 07/10/23 23:00 73 13 92 07/10/23 21:05 36.9 C 94 H 20 131/90 93 CPAP O2 Flow Rate 07/11/23 08:10 07/11/23 08:15 07/11/23 04:34 07/11/23 02:14 4 07/11/23 00:50 07/10/23 23:00 4 07/10/23 21:05 Diagnostic Findings Laboratory Results POC Glucose 103 mg/dl (70-99) H 07/11/23 08:12
--- NOTE | 2023-07-11 09:08 | Discharge Summary ---
Date of Service July 11, 2023 Admission HPI Per Admitting Provider Patient is a 42-year-old old female here today for preoperative history and physical for left shoulder arthroscopy, rotator cuff repair, biceps tenotomy, subacromial decompression with Dr. Solomon. She fell down some steps 05/02/23 and used her left hand to brace her fall and injured her shoulder. She was unable to raise her shoulder after the incident. She saw Dr. Nicole where she was told she had a full thickness rotator cuff tear and needed surgery. Her pain is in the anterior shoulder and radiates to the elbow. She describes her pain has sharp. She denies numbness or tingling or previous injury. She works at [employer] and has been off work since the incident. She is pre-diabetic and is on metformin. Her last hemoglobin A1C was 6.2 at the end of April. Patient was last seen by PCP on 05/16/23 and is aware of possibility of surgery. Her mother has a history of a blood clot after shoulder surgery. [1] she denies any changes or new injuries with her shoulder. He had an MRI done that showed massive rota tor cuff tear. Risks and benefits were discussed and patient has elected to proceed with surgical intervention. Patient is a smoker and smokes 1 pack a day for the past 20 years. She has no personal history of blood clots, heart attack, stroke. Admission Exam Per Admitting Provider Physical Exam Vitals & Measurements T: 36.2 C HR: 81 (Monitored) BP: 128/64 SpO2: 97% HT: 171 cm WT: 136.000 kg (Dosing) WT: 136 kg BMI: 46.51 General: Pt is well nourished, seated on the exam table AA&O, in NAD, calm and cooperative during exam HENT: Nontraumatic, no gross deformity, hearing and vision grossly in-tact, PERRL Heart: +S1, +S2, RRR, no murmurs appreciated Lungs: CTABL, no wheezing appreciated Principal Diagnosis Left shoulder rotator cuff tear Discharge Exam Left shoulder: Surgical port sites are closed completely with Steri-Strips, 2 x 2's [address] in place. There is no significant saturation. Patient is able to detect light sensation to touch over the pads of all digits. She has full range of motion of her fingers hand and wrist. I did not test range of motion in her elbow or shoulder I kept her sling in place. Her peripheral pulses were 2+. Her capillary refill was less than 2 seconds. She was neurovascularly intact in the left upper extremity. Discharge Data Allergies Allergy/AdvReac Type Severity Reaction Status Date / Time Penicillins Allergy Severe hives,difficulty Verified 07/10/23 10:48 breathing ceftriaxone Allergy Mild Rash Verified 07/10/23 10:48 Procedures Performed Operation Date: 07/10/23 12:00 Actual Procedures p Left Shoulder Arthroscopy, Massive Rotator Cuff Repair Supraspinatus and Infraspinatus, Biceps Tenotomy, Subacromial Decompression, Coracoplasty (Left) - Chaz Solomon MD Ordered Studies 07/10/23 05:00 US - OR guided needle placemen Routine Hospital Course (1) S/P left rotator cuff repair: Patient had an uneventful overnight stay following left shoulder massive rotator cuff repair. She states her pain is effectively controlled with the oxycodone she was given. She has a prescription for at home that was provided during her preoperative visit. She also has diclofenac sodium. Patient states she is scheduled to begin physical therapy in our PT clinic starting next Friday. She is very pleased with the results of her surgery and feels very comfortable at present. PT/OT this morning Pain control with p.o. medication that the patient already has DVT prophylaxis with baby aspirin and SUJIT stockings Ice with easy wrap Pillow sling use x6 weeks Keep dressings in place May remove sling for bathing purposes and range of motion exercises involving her elbow hand wrist and fingers Begin outpatient physical therapy next Friday in our clinic as scheduled Follow[facility]up at [facility] as previously scheduled With questions contact our clinic at [phone] Total Time Total Time Spent Total Time Spent (In Minutes): 20 minutes Discharge Plan Discharge Items Patient Disposition: Home - Self-Care Reason For Visit: Left Shoulder Rotator Cuff Tear, Biceps Tendonitis Discharge Diagnosis: Left shoulder rotator cuff repair; biceps tendonitis Activity: As commented below Lifting: Wait until after follow-up appointment Bathing: Keep incision dry Bathing Comment: May shower tomorrow Sexual Activity: Wait until after follow-up appointment Exercise/Sports: Wait until after follow-up appointment Driving/Machine Use: No driving until cleared by correctional treatment specialist Weightbearing: Left non-weightbearing Weightbearing Comment: with sling use Non-emergency contact: Surgeon Call non-emergency contact if: you have any medication questions, your temperature is above 101.5, your wound has increased drainage and your wound pain has increased Follow-up/Referrals: Montserrat Hernández, [Primary Care Provider] - Diet: Carb Consistent or DM2 Addtl Attending Provider Instructions: Post-operative Instructions Dear Patient and Family/Friends, Before you are discharged from the hospital, it is important to know what to expect when you get home after surgery. To that end, we have created this sheet of discharge instructions which covers many commonly asked questions. Make sure you go through this sheet in its entirety with your nurse before you are discharged. Please note that we will go over the specifics of your surgery and recovery when you return for your first post-operative visit. Sincerely, Dr. Solomon Pain Expect to be in a fair amount of pain after surgery. Remember, our goal is not to eliminate your pain, but to make it tolerable. It is a good idea to stay ahead of your pain by taking the medications you were prescribed once you get home. Typically, the pain starts improving 3-7 days after surgery. You should start weaning off the narcotic pain medication (oxycodone, hydrocodone, hydromorphone, morphine) as soon as your pain improves. Please call our office if your pain is not adequately controlled. Ice Ice your operative site at least 5 times a day for 15-30 minutes at a time. Make sure you have a thin cloth between the ice or cooling unit and your skin to prevent stubbs bite. This is especially important if you received a nerve block. Continue icing your operative site for the first 5-7 days after surgery, then as needed. Diet/Nausea/Vomiting Start by drinking clear liquids and eating crackers. If you can tolerate this, then you may resume your normal diet. If you feel nauseated or vomit, take Zofran/ondansetron (if prescribed). Please call our office if you have int ractable nausea or vomiting, or, if after hours, you may go to the Emergency Room for help. Constipation Constipation is a common side effect of narcotic pain medication. If you have not had a bowel movement within 2 days after surgery, we recommend purchasing an over the counter laxative such as Milk of Magnesia, Dulcolax, or Miralax from a local pharmacy, and taking it as instructed. Call our clinic if any questions. Slings and Braces If you were placed in a sling or brace, it must be worn at all times, including sleep. You may remove your sling or brace for physical therapy, home exercises, and showering. The length of time you will be in your brace and range of motion restrictions depends on what surgery you had; these details will be reviewed at your first post-operative appointment. Weight bearing and Range of Motion. Do not bear any weight through your operative extremity immediately after surge ry. If you had upper extremity surgery, do not lift anything with that arm. If you are in a knee brace, keep it locked in place until your follow-up. We will discuss your weight bearing, range of motion, and lifting restrictions in detail at your first post-operative appointment. Continuous Passive Motion (CPM) Machine If you were prescribed a CPM machine, it will start after your first post-ope rative appointment, at which time we will give you instructions on the range of motion settings and duration of treatment Physical therapy You will be given a prescription for physical therapy or occupational therapy at your first post-operative appointment. Typically, patients start therapy within 1 week of surgery Wound care and showering We will inspect your wound at your first post-operative visit, and may do a dressing change at that time. Most patients will be in a water-proof dressing that is removed 14 days after surgery. It is normal to see some dried blood on the dressing. Do not remove your dressing, paper strips or sutures yourself unless you are given permission. Showering is allowed the day after surgery. Do not scrub or remove any dressings. The wound should not be submerged underwater (i.e. in a bathtub or pool) until 4 weeks after surgery SUJIT stockings If you were given white stockings, these are to be worn at all times except to shower (on both legs) for the first 2 weeks after surgery. Driving You may not drive while taking narcotic pain medication or while in a cast, splint, sling or brace. You, the patient, need to make the final determination about when you are safe to drive, however, the earliest you may consider driving after surgery is below: Hand/Wrist/Elbow Surgery: 3 days Shoulder Surgery: 2 weeks Hip,/Knee/Ankle Surgery: 4 weeks Fracture repair: 6 weeks Return to Work Your return to work depends on what surgery was done and what type of work you do. Please bring any paperwork your employer needs completed to your first post-operative visit. Also, bring a description of your job duties, as this helps us to understand what risks you may face at work. Travel Avoid long distance travel (greater than 1 hour) in airplanes and cars for the first 6 weeks after surgery. If you must travel, you need to have a Doppler ultrasound done before you travel to rule out a blood clot in your legs. Follow-up You should have a follow-up appointment already scheduled 1-2 days after surgery. If not, please contact our office to make this appointment before you leave the hospital. When to call the office It is normal to have swelling and bruising in the limb that was operated on. This will improve with time. It is also normal to have fevers for the first 2 days after surgery. Reasons you should call your doctor include: Uncontrolled pain; Nausea, vomiting, or constipation that does not improve with medication; Fevers over 101.5, chills, sweats; Drainage or bleeding from the wound; Foul odor; Spreading areas of redness; Any other concerns Pending Studies at Discharge: No Stand-Alone Forms: My [facility] Medications and DC Order Prescriptions: Continued montelukast 10 mg tablet 10 mg PO QPM albuterol sulfate 90 mcg/actuation HFA aerosol inhaler 2 puff inhalation Q4H PRN (Reason: Shortness Of Breath Or Wheezing) fluticasone propionate 50 mcg/actuation spray,suspension 1 spray intranasal BID fenofibrate nanocrystallized 145 mg tablet 145 mg PO QAM fluticasone propion-salmeterol 250-50 mcg/dose blister with device 1 inh INHALATION AMHS metformin 500 mg tablet extended release 24 hr 1,000 mg PO QAM losartan 25 mg tablet 12.5 mg PO QAM trazodone 50 mg Tablet 50 mg PO HS Rexulti 1 mg Tablet 1.5 mg PO QAM tiotropium bromide [Spiriva with HandiHaler] 18 mcg capsule, w/inhalation device 1 cap INHALATION QAM albuterol sulfate 2.5 mg /3 mL (0.083 %) solution for nebulization 2.5 mg continuous nebulization Q4 PRN (Reason: Shortness Of Breath Or Wheezing) Rx Instructions: use in place of rescue inhaler escitalopram oxalate [Lexapro] 20 mg Tablet 20 mg PO QAM atorvastatin 10 mg tablet 10 mg PO QAM buspirone 30 mg tablet 30 mg PO BID omeprazole 20 mg capsule,delayed release(DR/EC) 20 mg PO DAILYBB Discharge Orders: Discharge Order (Routine); Ordered 07/11/23 Ordered By: Prashant Brown Admission Data Admit Date/Time: 07/10/23 16:19 Attending Provider: Chaz Solomon Admit Provider: Chaz Solomon Primary Care Provider: Montserrat Hernández Other Interventions: Discharge Summary Assessment (RN) Last Done: 07/11/23 08:30
== END 2023-07-11 13:19 | disposition home or self-care (01) ==
LOC: ASU 10:21 → 3N 10:21